=== PATIENT | male | born 1940 | race Caucasian/White ===

== ENCOUNTER → 2017-04-24 | Outpatient (POV) | payer MEDICARE, SELFPAY | PROVIDERS: Family Provider Internal Medicine; PCP Internal Medicine; Visit Provider Otolaryngology | DX: D49.2 Neoplasm of unspecified behavior of bone, soft tissue, and skin (principal); Z01.818 Encounter for other preprocedural examination; Z79.01 Long term (current) use of anticoagulants; Z51.81 Encounter for therapeutic drug level monitoring | CPT/HCPCS: 36415; 80048; 85025; 85610 ==

== ENCOUNTER → 2017-06-11 10:28 | Outpatient (CLI) | payer MEDICARE, SELFPAY ==
[2017-06-11 11:20] LABS: INR 2.87 (0.9-1.1); Prothrombin Time 31.3 seconds (9.4-11.8)
== END ==
PROVIDERS: PCP Internal Medicine; Visit Provider Internal Medicine
DX: Z79.01 Long term (current) use of anticoagulants (principal); I48.0 Paroxysmal atrial fibrillation; Z51.81 Encounter for therapeutic drug level monitoring
CPT/HCPCS: 36415; 85610

== ENCOUNTER → 2017-07-08 12:52 | Outpatient (CLI) | payer MEDICARE, SELFPAY ==
[2017-07-08 14:48] LABS: INR 2.85 (0.9-1.1); Prothrombin Time 31.1 seconds (9.4-11.8)
== END ==
PROVIDERS: PCP Internal Medicine; Visit Provider Internal Medicine
DX: Z79.01 Long term (current) use of anticoagulants (principal); Z51.81 Encounter for therapeutic drug level monitoring; I48.0 Paroxysmal atrial fibrillation
CPT/HCPCS: 36415; 85610

== ENCOUNTER → 2017-08-06 09:19 | Outpatient (CLI) | payer MEDICARE, SELFPAY ==
[2017-08-06 09:48] LABS: INR 3.08 (0.9-1.1); Prothrombin Time 33.7 seconds (9.4-11.8)
== END ==
PROVIDERS: Visit Provider Internal Medicine
DX: Z79.01 Long term (current) use of anticoagulants (principal); Z51.81 Encounter for therapeutic drug level monitoring; I48.0 Paroxysmal atrial fibrillation
CPT/HCPCS: 36415; 85610

== ENCOUNTER → 2017-08-25 10:11 | Outpatient (CLI) | payer MEDICARE, SELFPAY ==
[2017-08-25 10:33] LABS: INR 2.37 (0.9-1.1); Prothrombin Time 25.8 seconds (9.4-11.8)
== END ==
PROVIDERS: Visit Provider Internal Medicine
DX: Z79.01 Long term (current) use of anticoagulants (principal); Z51.81 Encounter for therapeutic drug level monitoring; I48.0 Paroxysmal atrial fibrillation
CPT/HCPCS: 36415; 85610

== ENCOUNTER → 2017-09-25 10:37 | Outpatient (CLI) | payer MEDICARE, SELFPAY ==
[2017-09-25 12:35] LABS: INR 2.09 (0.9-1.1); Prothrombin Time 22.7 seconds (9.4-11.8)
== END ==
PROVIDERS: Visit Provider Internal Medicine
DX: Z79.01 Long term (current) use of anticoagulants (principal); Z51.81 Encounter for therapeutic drug level monitoring; I48.0 Paroxysmal atrial fibrillation
CPT/HCPCS: 36415; 85610

== ENCOUNTER → 2017-10-27 13:13 | Outpatient (CLI) | payer MEDICARE, SELFPAY ==
[2017-10-27 14:07] LABS: Prothrombin Time 25.1 seconds (9.4-11.8)
== END ==
PROVIDERS: Visit Provider Internal Medicine
DX: Z79.01 Long term (current) use of anticoagulants (principal); Z51.81 Encounter for therapeutic drug level monitoring; I48.0 Paroxysmal atrial fibrillation
CPT/HCPCS: 36415; 85610

== ENCOUNTER → 2017-12-01 10:30 | Outpatient (CLI) | payer MEDICARE, SELFPAY ==
[2017-12-01 10:50] LABS: INR 2.82 (0.9-1.1); Prothrombin Time 28.2 seconds (9.4-11.8)
== END ==
PROVIDERS: Visit Provider Internal Medicine
DX: Z79.01 Long term (current) use of anticoagulants (principal); Z51.81 Encounter for therapeutic drug level monitoring; I48.0 Paroxysmal atrial fibrillation
CPT/HCPCS: 36415; 85610

== ENCOUNTER → 2017-12-28 14:35 | Outpatient (CLI) | payer MEDICARE, SELFPAY ==
[2017-12-28 14:52] LABS: Prothrombin Time 21.2 seconds (9.4-11.8)
== END ==
PROVIDERS: Visit Provider Internal Medicine
DX: Z79.01 Long term (current) use of anticoagulants (principal); Z51.81 Encounter for therapeutic drug level monitoring; I48.0 Paroxysmal atrial fibrillation
CPT/HCPCS: 36415; 85610

== ENCOUNTER → 2018-02-09 12:04 | Outpatient (CLI) | payer MEDICARE, SELFPAY ==
[2018-02-09 12:48] LABS: INR 2.05 (0.9-1.1); Prothrombin Time 20.7 seconds (9.4-11.8)
== END ==
PROVIDERS: PCP Internal Medicine; Visit Provider Internal Medicine
DX: Z51.81 Encounter for therapeutic drug level monitoring (principal); Z79.01 Long term (current) use of anticoagulants; I48.0 Paroxysmal atrial fibrillation
CPT/HCPCS: 36415; 85610

== ENCOUNTER → 2018-02-23 13:19 | Outpatient (POV) | payer MEDICARE, SELFPAY | PROVIDERS: Visit Provider Dermatology | DX: Z00.00 Encounter for general adult medical examination without abnormal findings (principal) ==

== ENCOUNTER → 2018-03-09 14:28 | Outpatient (CLI) | payer MEDICARE, SELFPAY ==
[2018-03-09 15:10] LABS: INR 2.19 (0.9-1.1); Prothrombin Time 22.1 seconds (9.4-11.8)
== END ==
PROVIDERS: PCP Internal Medicine; Visit Provider Internal Medicine
DX: Z51.81 Encounter for therapeutic drug level monitoring (principal); Z79.01 Long term (current) use of anticoagulants; I48.0 Paroxysmal atrial fibrillation
CPT/HCPCS: 36415; 85610

== ENCOUNTER → 2018-04-08 11:35 | Outpatient (CLI) | payer MEDICARE, SELFPAY ==
[2018-04-08 12:24] LABS: INR 2.19 (0.9-1.1); Prothrombin Time 22.1 seconds (9.4-11.8)
== END ==
PROVIDERS: Visit Provider Internal Medicine
DX: Z51.81 Encounter for therapeutic drug level monitoring (principal); Z79.01 Long term (current) use of anticoagulants; I48.0 Paroxysmal atrial fibrillation
CPT/HCPCS: 36415; 85610

== ENCOUNTER → 2018-05-04 09:28 | Outpatient (CLI) | payer MEDICARE, SELFPAY ==
[2018-05-04 09:51] LABS: INR 2.75 (0.9-1.1); Prothrombin Time 27.5 seconds (9.4-11.8)
== END ==
PROVIDERS: Visit Provider Internal Medicine
DX: Z51.81 Encounter for therapeutic drug level monitoring (principal); Z79.01 Long term (current) use of anticoagulants; I48.0 Paroxysmal atrial fibrillation
CPT/HCPCS: 36415; 85610

== ENCOUNTER → 2018-06-02 13:46 | Outpatient (CLI) | payer MEDICARE, SELFPAY ==
[2018-06-02 14:35] LABS: INR 2.12 (0.9-1.1); Prothrombin Time 21.4 seconds (9.4-11.8)
== END ==
PROVIDERS: Visit Provider Internal Medicine
DX: Z51.81 Encounter for therapeutic drug level monitoring (principal); Z79.01 Long term (current) use of anticoagulants; I48.0 Paroxysmal atrial fibrillation
CPT/HCPCS: 36415; 85610

== ENCOUNTER → 2018-06-29 14:08 | Outpatient (CLI) | payer MEDICARE, SELFPAY ==
[2018-06-29 14:26] LABS: INR 2.49 (0.9-1.1)
== END ==
PROVIDERS: Visit Provider Internal Medicine
DX: Z51.81 Encounter for therapeutic drug level monitoring (principal); Z79.01 Long term (current) use of anticoagulants; I48.0 Paroxysmal atrial fibrillation
CPT/HCPCS: 36415; 85610

== ENCOUNTER → 2018-08-10 13:13 | Outpatient (CLI) | payer MEDICARE, SELFPAY ==
[2018-08-10 14:10] LABS: INR 2.93 (0.9-1.1); Prothrombin Time 29.3 seconds (9.4-11.8)
== END ==
PROVIDERS: Visit Provider Internal Medicine
DX: Z51.81 Encounter for therapeutic drug level monitoring (principal); Z79.01 Long term (current) use of anticoagulants; I48.0 Paroxysmal atrial fibrillation
CPT/HCPCS: 36415; 85610

== ENCOUNTER → 2018-09-06 10:42 | Outpatient (CLI) | payer MEDICARE, SELFPAY ==
[2018-09-06 11:10] LABS: Prothrombin Time 24.1 seconds (9.4-11.8)
== END ==
PROVIDERS: Visit Provider Internal Medicine
DX: Z51.81 Encounter for therapeutic drug level monitoring (principal); Z79.01 Long term (current) use of anticoagulants; I48.0 Paroxysmal atrial fibrillation
CPT/HCPCS: 36415; 85610

== ENCOUNTER → 2018-10-07 11:55 | Outpatient (CLI) | payer MEDICARE, SELFPAY ==
[2018-10-07 12:55] LABS: INR 2.93 (0.9-1.1)
== END ==
PROVIDERS: Visit Provider Internal Medicine
DX: Z51.81 Encounter for therapeutic drug level monitoring (principal); Z79.01 Long term (current) use of anticoagulants; I48.0 Paroxysmal atrial fibrillation
CPT/HCPCS: 36415; 85610

== ENCOUNTER → 2018-11-04 10:14 | Outpatient (CLI) | payer MEDICARE, SELFPAY ==
[2018-11-04 13:07] LABS: INR 2.76 (0.9-1.1); Prothrombin Time 27.4 seconds (9.4-11.8)
== END ==
PROVIDERS: Visit Provider Internal Medicine
DX: Z51.81 Encounter for therapeutic drug level monitoring (principal); Z79.01 Long term (current) use of anticoagulants; I48.0 Paroxysmal atrial fibrillation
CPT/HCPCS: 36415; 85610

== ENCOUNTER → 2018-11-30 11:10 | Outpatient (CLI) | payer MEDICARE, SELFPAY ==
[2018-11-30 11:31] LABS: INR 2.33 (0.9-1.1); Prothrombin Time 23.3 seconds (9.4-11.8)
== END ==
PROVIDERS: Visit Provider Internal Medicine
DX: Z51.81 Encounter for therapeutic drug level monitoring (principal); Z79.01 Long term (current) use of anticoagulants; I48.0 Paroxysmal atrial fibrillation
CPT/HCPCS: 36415; 85610

== ENCOUNTER → 2018-12-21 14:02 | Outpatient (POV) | payer MEDICARE, SELFPAY | PROVIDERS: Visit Provider Dermatology | DX: Z00.00 Encounter for general adult medical examination without abnormal findings (principal) ==

== ENCOUNTER → 2018-12-30 09:45 | Outpatient (CLI) | payer MEDICARE, SELFPAY ==
[2018-12-30 10:21] LABS: INR 2.74 (0.9-1.1); Prothrombin Time 27.2 seconds (9.4-11.8)
== END ==
PROVIDERS: Visit Provider Internal Medicine
DX: Z79.01 Long term (current) use of anticoagulants (principal)
CPT/HCPCS: 36415; 85610

== ENCOUNTER → 2019-02-02 16:20 | Outpatient (CLI) | payer MEDICARE, SELFPAY ==
[2019-02-02 17:01] LABS: INR 2.98 (0.9-1.1); Prothrombin Time 29.4 seconds (9.4-11.8)
== END ==
PROVIDERS: Visit Provider Internal Medicine
DX: Z51.81 Encounter for therapeutic drug level monitoring (principal); Z79.01 Long term (current) use of anticoagulants; I48.91 Unspecified atrial fibrillation
CPT/HCPCS: 36415; 85610

== ENCOUNTER → 2019-03-02 11:55 | Outpatient (CLI) | payer MEDICARE, SELFPAY ==
[2019-03-02 12:18] LABS: INR 2.22 (0.9-1.1); Prothrombin Time 22.2 seconds (9.4-11.8)
== END ==
PROVIDERS: Visit Provider Internal Medicine
DX: Z51.81 Encounter for therapeutic drug level monitoring (principal); Z79.01 Long term (current) use of anticoagulants; I48.0 Paroxysmal atrial fibrillation
CPT/HCPCS: 36415; 85610

== ENCOUNTER → 2019-03-29 14:14 | Outpatient (CLI) | payer MEDICARE, SELFPAY ==
[2019-03-29 15:05] LABS: INR 3.22 (0.9-1.1); Prothrombin Time 31.7 seconds (9.4-11.8)
== END ==
PROVIDERS: Visit Provider Internal Medicine
DX: Z51.81 Encounter for therapeutic drug level monitoring (principal); Z79.01 Long term (current) use of anticoagulants; I48.0 Paroxysmal atrial fibrillation
CPT/HCPCS: 36415; 85610

== ENCOUNTER → 2019-04-11 13:13 | Outpatient (CLI) | payer MEDICARE, SELFPAY ==
[2019-04-11 13:38] LABS: INR 3.83 (0.9-1.1); Prothrombin Time 37.4 seconds (9.4-11.8)
== END ==
PROVIDERS: Visit Provider Internal Medicine
DX: Z51.81 Encounter for therapeutic drug level monitoring; Z79.01 Long term (current) use of anticoagulants; I48.0 Paroxysmal atrial fibrillation
CPT/HCPCS: 36415; 85610

== ENCOUNTER → 2019-04-27 11:18 | Outpatient (CLI) | payer MEDICARE, SELFPAY ==
[2019-04-27 11:40] LABS: INR 3.13 (0.9-1.1); Prothrombin Time 30.8 seconds (9.4-11.8)
== END ==
PROVIDERS: Visit Provider Internal Medicine
DX: Z51.81 Encounter for therapeutic drug level monitoring (principal); Z79.01 Long term (current) use of anticoagulants; I48.0 Paroxysmal atrial fibrillation
CPT/HCPCS: 36415; 85610

== ENCOUNTER → 2019-05-11 10:25 | Outpatient (CLI) | payer MEDICARE, SELFPAY ==
[2019-05-11 11:27] LABS: INR 2.55 (0.9-1.1); Prothrombin Time 25.4 seconds (9.4-11.8)
== END ==
PROVIDERS: Visit Provider Internal Medicine
DX: Z51.81 Encounter for therapeutic drug level monitoring (principal); Z79.01 Long term (current) use of anticoagulants
CPT/HCPCS: 36415; 85610

== ENCOUNTER → 2019-05-31 11:03 | Outpatient (CLI) | payer MEDICARE, SELFPAY ==
[2019-05-31 11:19] LABS: Basophils % 0.5 % (0.1-2.0); Eosinophils # 0.2 K/mm3 (0.0-0.4); Eosinophils % 3.1 % (0.1-12.0); Hematocrit 40.6 % (42.0-52.0); Hemoglobin 13.4 g/dL (14.1-18.0); INR 3.49 (0.9-1.1); Lymphocytes % 13.7 % (10-50); Mean Corpuscular HGB Conc 33.1 g/dL (31.8-35.4); Mean Corpuscular Hemoglobin 29.2 pg (27.0-31.2); Mean Corpuscular Volume 88.2 fl (80-94); Mean Platelet Volume 6.8 fl (7.4-10.4); Monocytes # 0.6 K/mm3 (0.1-1.0); Monocytes % 7.6 % (1.7-9.3); Neutrophils # 5.5 K/mm3 (1.8-7.8); Neutrophils % 75.1 % (37.0-80.0); Platelet Count 341 K/mm3 (142-424); Prothrombin Time 34.2 seconds (9.4-11.8); Red Cell Distribution Width 13.1 % (11.5-17.5); White Blood Count 7.3 K/mm3 (4.8-10.8)
[2019-05-31 11:51] LABS: Erythrocyte Sedimentation Rate 28 mm/hr (0-20)
[2019-05-31 11:56] LABS: Thyroid Stimulating Hormone 2.49 uIU/ml (0.358-3.740)
[2019-06-01 11:08] LABS: Vitamin B12 208 pg/mL (232-1245)
[2019-06-01 11:09] LABS: Folate 17.9 ng/mL (>3.0)
[2019-06-01 16:10] LABS: Albumin 3.2 g/dL (2.9-4.4); Alpha-1-Globulin 0.4 g/dL (0.0-0.4); Alpha-2-Globulin 1.3 g/dL (0.4-1.0); Gamma Globulin 1.1 g/dL (0.4-1.8); Protein, Total 6.9 g/dL (6.0-8.5)
== END ==
PROVIDERS: Visit Provider Internal Medicine
DX: G62.9 Polyneuropathy, unspecified (principal); I48.91 Unspecified atrial fibrillation
CPT/HCPCS: 82607; 82746; 84155; 84165; 84443; 85025; 85610; 85651

== ENCOUNTER → 2019-06-15 11:32 | Outpatient (CLI) | payer MEDICARE, SELFPAY ==
[2019-06-15 12:11] LABS: INR 2.53 (0.9-1.1); Prothrombin Time 25.2 seconds (9.4-11.8)
== END ==
PROVIDERS: Visit Provider Internal Medicine
DX: Z51.81 Encounter for therapeutic drug level monitoring (principal); Z79.01 Long term (current) use of anticoagulants; I48.0 Paroxysmal atrial fibrillation
CPT/HCPCS: 36415; 85610

== ENCOUNTER → 2019-07-12 09:56 | Outpatient (POV) | payer MEDICARE, SELFPAY | PROVIDERS: PCP Internal Medicine; Visit Provider Dermatology | DX: Z00.00 Encounter for general adult medical examination without abnormal findings (principal) ==

== ENCOUNTER → 2019-07-13 15:36 | Outpatient (CLI) | payer MEDICARE, SELFPAY ==
[2019-07-13 16:32] LABS: INR 2.67 (0.9-1.1); Prothrombin Time 26.5 seconds (9.4-11.8)
== END ==
PROVIDERS: Visit Provider Internal Medicine
DX: Z51.81 Encounter for therapeutic drug level monitoring (principal); Z79.01 Long term (current) use of anticoagulants; I48.0 Paroxysmal atrial fibrillation
CPT/HCPCS: 36415; 85610

== ENCOUNTER → 2019-08-03 11:14 | Outpatient (CLI) | payer MEDICARE, SELFPAY | PROVIDERS: Visit Provider Internal Medicine | DX: Z51.81 Encounter for therapeutic drug level monitoring (principal); Z79.01 Long term (current) use of anticoagulants; I48.0 Paroxysmal atrial fibrillation | CPT/HCPCS: 36415; 85610 ==

== ENCOUNTER → 2019-08-31 07:52 | Outpatient (CLI) | payer MEDICARE, SELFPAY ==
[2019-08-31 08:22] LABS: INR 1.74 (0.9-1.1); Prothrombin Time 17.6 seconds (9.4-11.8)
== END ==
PROVIDERS: Visit Provider Internal Medicine
DX: Z51.81 Encounter for therapeutic drug level monitoring (principal); Z79.01 Long term (current) use of anticoagulants; I48.0 Paroxysmal atrial fibrillation
CPT/HCPCS: 36415; 85610

== ENCOUNTER → 2019-09-14 08:33 | Outpatient (CLI) | payer MEDICARE, SELFPAY ==
[2019-09-14 09:38] LABS: INR 2.01 (0.9-1.1); Prothrombin Time 20.2 seconds (9.4-11.8)
== END ==
PROVIDERS: Visit Provider Internal Medicine
DX: Z51.81 Encounter for therapeutic drug level monitoring (principal); Z79.01 Long term (current) use of anticoagulants; I48.0 Paroxysmal atrial fibrillation
CPT/HCPCS: 36415; 85610

== ENCOUNTER → 2019-10-12 11:55 | Outpatient (CLI) | payer MEDICARE, SELFPAY ==
[2019-10-12 13:06] LABS: INR 2.61 (0.9-1.1); Prothrombin Time 25.9 seconds (9.4-11.8)
== END ==
PROVIDERS: Visit Provider Internal Medicine
DX: Z51.81 Encounter for therapeutic drug level monitoring (principal); Z79.01 Long term (current) use of anticoagulants; I48.0 Paroxysmal atrial fibrillation
CPT/HCPCS: 36415; 85610

== ENCOUNTER → 2019-12-06 09:42 | Outpatient (POV) | payer MEDICARE, SELFPAY | PROVIDERS: PCP Internal Medicine; Visit Provider Dermatology | DX: Z00.00 Encounter for general adult medical examination without abnormal findings (principal) ==

== ENCOUNTER → 2019-12-07 11:52 | Outpatient (CLI) | payer MEDICARE, SELFPAY ==
[2019-12-07 12:44] LABS: Prothrombin Time 26.1 seconds (9.4-11.8)
== END ==
PROVIDERS: Visit Provider Internal Medicine
DX: Z51.81 Encounter for therapeutic drug level monitoring (principal); Z79.01 Long term (current) use of anticoagulants; I48.0 Paroxysmal atrial fibrillation
CPT/HCPCS: 36415; 85610

== ENCOUNTER → 2020-01-04 12:01 | Outpatient (CLI) | payer MEDICARE, SELFPAY ==
[2020-01-04 12:33] LABS: INR 2.61 (0.9-1.1); Prothrombin Time 25.2 seconds (9.4-11.8)
== END ==
PROVIDERS: Visit Provider Internal Medicine
DX: Z51.81 Encounter for therapeutic drug level monitoring (principal); Z79.01 Long term (current) use of anticoagulants; I48.91 Unspecified atrial fibrillation
CPT/HCPCS: 36415; 85610

== ENCOUNTER → 2020-02-29 11:54 | Outpatient (CLI) | payer MEDICARE, SELFPAY ==
[2020-02-29 13:29] LABS: INR 2.78 (0.9-1.1); Prothrombin Time 28.1 seconds (9.4-11.8)
== END ==
PROVIDERS: Visit Provider Internal Medicine
DX: Z51.81 Encounter for therapeutic drug level monitoring (principal); Z79.01 Long term (current) use of anticoagulants; I48.0 Paroxysmal atrial fibrillation
CPT/HCPCS: 36415; 85610

== ENCOUNTER → 2020-03-28 11:24 | Outpatient (CLI) | payer MEDICARE, SELFPAY ==
[2020-03-28 13:13] LABS: INR 2.73 (0.9-1.1); Prothrombin Time 27.7 seconds (9.4-11.8)
== END ==
PROVIDERS: Visit Provider Internal Medicine
DX: Z51.81 Encounter for therapeutic drug level monitoring (principal); Z79.01 Long term (current) use of anticoagulants; I48.0 Paroxysmal atrial fibrillation
CPT/HCPCS: 36415; 85610

== ENCOUNTER → 2020-04-25 12:00 | Outpatient (CLI) | payer MEDICARE, SELFPAY ==
[2020-04-25 14:08] LABS: INR 2.95 (0.9-1.1); Prothrombin Time 29.7 seconds (9.4-11.8)
== END ==
PROVIDERS: Visit Provider Internal Medicine
DX: Z51.81 Encounter for therapeutic drug level monitoring (principal); Z79.01 Long term (current) use of anticoagulants; I48.0 Paroxysmal atrial fibrillation
CPT/HCPCS: 36415; 85610

== ENCOUNTER → 2020-05-23 11:25 | Outpatient (CLI) | payer MEDICARE, SELFPAY ==
[2020-05-23 11:59] LABS: INR 2.68 (0.9-1.1); Prothrombin Time 27.2 seconds (9.4-11.8)
== END ==
PROVIDERS: Visit Provider Internal Medicine
DX: Z51.81 Encounter for therapeutic drug level monitoring (principal); Z79.01 Long term (current) use of anticoagulants; I48.0 Paroxysmal atrial fibrillation
CPT/HCPCS: 36415; 85610

== ENCOUNTER → 2020-06-12 15:11 | Outpatient (POV) | payer MEDICARE, SELFPAY | PROVIDERS: Visit Provider Dermatology | DX: Z00.00 Encounter for general adult medical examination without abnormal findings (principal) ==

== ENCOUNTER → 2020-06-20 12:02 | Outpatient (CLI) | payer MEDICARE, SELFPAY ==
[2020-06-20 13:08] LABS: INR 2.24 (0.9-1.1); Prothrombin Time 23.1 seconds (9.4-11.8)
== END ==
PROVIDERS: Visit Provider Internal Medicine
DX: Z51.81 Encounter for therapeutic drug level monitoring (principal); Z79.01 Long term (current) use of anticoagulants; I48.0 Paroxysmal atrial fibrillation
CPT/HCPCS: 36415; 85610

== ENCOUNTER → 2020-07-18 13:27 | Outpatient (CLI) | payer MEDICARE, SELFPAY ==
[2020-07-18 17:19] LABS: INR 2.76 (0.9-1.1); Prothrombin Time 27.9 seconds (9.4-11.8)
== END ==
PROVIDERS: Visit Provider Internal Medicine
DX: Z51.81 Encounter for therapeutic drug level monitoring (principal); Z79.01 Long term (current) use of anticoagulants; I48.0 Paroxysmal atrial fibrillation
CPT/HCPCS: 36415; 85610

== ENCOUNTER → 2020-08-09 10:19 | Outpatient (POV) | payer MEDICARE, SELFPAY | PROVIDERS: Visit Provider Audiologist | DX: Z00.00 Encounter for general adult medical examination without abnormal findings (principal) ==

== ENCOUNTER → 2020-08-15 11:44 | Outpatient (CLI) | payer MEDICARE, SELFPAY ==
[2020-08-15 13:14] LABS: INR 2.31 (0.9-1.1); Prothrombin Time 25.6 seconds (10.1-12.5)
[2020-08-15 13:53] LABS: Thyroid Stimulating Hormone 1.92 uIU/mL (0.465-4.68)
[2020-08-15 13:57] LABS: Ferritin 141 ng/ml (17.9-464)
[2020-08-15 14:30] LABS: Folate > 20.00 ng/mL; Vitamin B12 > 1000 pg/mL (239-931)
[2020-08-20 15:34] LABS: Albumin 4.1 g/dL (2.9-4.4); Alpha-1-Globulin 0.3 g/dL (0.0-0.4); Alpha-2-Globulin 0.8 g/dL (0.4-1.0); Gamma Globulin 1.2 g/dL (0.4-1.8); Immunoglobulin A, Qn, CHARGE YES; Immunoglobulin A, Qn, Serum 118 mg/dL (61-437); Immunoglobulin G, Qn, CHARGE YES; Immunoglobulin G, Qn, Serum 1199 mg/dL (603-1613); Immunoglobulin M, Qn, CHARGE YES; Immunoglobulin M, Qn, Serum 73 mg/dL (15-143); Protein, Total 7.3 g/dL (6.0-8.5)
== END ==
PROVIDERS: Internal Medicine; Visit Provider Specialist
DX: E83.10 Disorder of iron metabolism, unspecified (principal); R20.0 Anesthesia of skin; R20.8 Other disturbances of skin sensation; R53.83 Other fatigue; R73.9 Hyperglycemia, unspecified; Z86.39 Personal history of other endocrine, nutritional and metabolic disease; E78.5 Hyperlipidemia, unspecified; I48.91 Unspecified atrial fibrillation; I10 Essential (primary) hypertension; Z51.81 Encounter for therapeutic drug level monitoring; Z79.01 Long term (current) use of anticoagulants
CPT/HCPCS: 36415; 82607; 82728; 82746; 82784; 83036; 84155; 84165; 84443; 85610; 86334

== ENCOUNTER → 2020-09-11 12:03 | Outpatient (CLI) | payer MEDICARE, SELFPAY ==
[2020-09-11 13:29] LABS: INR 2.77 (0.9-1.1); Prothrombin Time 30.3 seconds (10.1-12.5)
== END ==
PROVIDERS: Visit Provider Internal Medicine
DX: Z51.81 Encounter for therapeutic drug level monitoring (principal); Z79.01 Long term (current) use of anticoagulants; I48.0 Paroxysmal atrial fibrillation
CPT/HCPCS: 36415; 85610

== ENCOUNTER → 2020-10-10 11:44 | Outpatient (CLI) | payer MEDICARE, SELFPAY ==
[2020-10-10 12:51] LABS: INR 2.46 (0.9-1.1); Prothrombin Time 27.2 seconds (10.1-12.5)
== END ==
PROVIDERS: Visit Provider Internal Medicine
DX: Z51.81 Encounter for therapeutic drug level monitoring (principal); Z79.01 Long term (current) use of anticoagulants; I48.0 Paroxysmal atrial fibrillation
CPT/HCPCS: 36415; 85610

== ENCOUNTER → 2020-11-07 11:47 | Outpatient (CLI) | payer MEDICARE, SELFPAY ==
[2020-11-07 13:36] LABS: Prothrombin Time 26.1 seconds (10.1-12.5)
[2020-11-07 16:18] LABS: INR 2.36 (0.9-1.1)
== END ==
PROVIDERS: Visit Provider Internal Medicine
DX: Z51.81 Encounter for therapeutic drug level monitoring (principal); Z79.01 Long term (current) use of anticoagulants; I48.0 Paroxysmal atrial fibrillation
CPT/HCPCS: 36415; 85610

== ENCOUNTER → 2020-12-04 11:44 | Outpatient (CLI) | payer MEDICARE, SELFPAY ==
[2020-12-04 12:44] LABS: INR 2.26 (0.9-1.1); Prothrombin Time 25.1 seconds (10.1-12.5)
== END ==
PROVIDERS: Visit Provider Internal Medicine
DX: Z51.81 Encounter for therapeutic drug level monitoring (principal); Z79.01 Long term (current) use of anticoagulants; I48.0 Paroxysmal atrial fibrillation
CPT/HCPCS: 36415; 85610

== ENCOUNTER → 2020-12-31 15:03 | Outpatient (CLI) | payer MEDICARE, SELFPAY ==
[2020-12-31 15:44] LABS: Prothrombin Time 31.2 seconds (10.1-12.5)
[2020-12-31 15:55] LABS: INR 2.86 (0.9-1.1)
== END ==
PROVIDERS: Visit Provider Internal Medicine
DX: Z51.81 Encounter for therapeutic drug level monitoring (principal); Z79.01 Long term (current) use of anticoagulants; I48.0 Paroxysmal atrial fibrillation
CPT/HCPCS: 36415; 85610

== ENCOUNTER → 2021-02-27 13:55 | Outpatient (CLI) | payer MEDICARE, SELFPAY ==
[2021-02-27 14:02] LABS: Basophils # 0.1 K/mm3 (0-0.2); Basophils % 0.9 % (0.1-2.0); Eosinophils # 0.1 K/mm3 (0.0-0.4); Eosinophils % 2.7 % (0.1-12.0); Hematocrit 36.4 % (42.0-52.0); Lymphocytes % 20.6 % (10-50); Mean Corpuscular Hemoglobin 30.6 pg (27.0-31.2); Mean Corpuscular Volume 92.7 fl (80-94); Mean Platelet Volume 8.1 fl (7.4-10.4); Monocytes # 0.3 K/mm3 (0.1-1.0); Monocytes % 6.7 % (1.7-9.3); Neutrophils # 3.4 K/mm3 (1.8-7.8); Neutrophils % 69.1 % (37.0-80.0); Platelet Count 278 K/mm3 (142-424); Red Blood Count 3.93 M/mm3 (4.60-6.20); Red Cell Distribution Width 13.9 % (11.5-17.5); White Blood Count 4.9 K/mm3 (4.8-10.8)
== END ==
PROVIDERS: Visit Provider Internal Medicine
DX: D64.9 Anemia, unspecified (principal); I73.9 Peripheral vascular disease, unspecified; E53.8 Deficiency of other specified B group vitamins
CPT/HCPCS: 85025

== ENCOUNTER → 2021-03-06 10:18 | Outpatient (CLI) | payer MEDICARE, SELFPAY ==
[2021-03-06 10:46] LABS: INR 2.69 (0.9-1.1); Prothrombin Time 28.2 seconds (10.1-12.5)
== END ==
PROVIDERS: Visit Provider Internal Medicine
DX: Z51.81 Encounter for therapeutic drug level monitoring (principal); Z79.01 Long term (current) use of anticoagulants; I48.0 Paroxysmal atrial fibrillation
CPT/HCPCS: 36415; 85610

== ENCOUNTER → 2021-04-03 11:39 | Outpatient (CLI) | payer MEDICARE, SELFPAY ==
[2021-04-03 12:54] LABS: INR 2.31 (0.9-1.1); Prothrombin Time 24.5 seconds (10.1-12.5)
== END ==
PROVIDERS: Visit Provider Internal Medicine
DX: Z51.81 Encounter for therapeutic drug level monitoring (principal); Z79.01 Long term (current) use of anticoagulants; I48.0 Paroxysmal atrial fibrillation
CPT/HCPCS: 85610

== ENCOUNTER → 2021-04-08 13:40 | Outpatient (CLI) | payer MEDICARE, SELFPAY | PROVIDERS: PCP Internal Medicine; Visit Provider Internal Medicine Cardiovascular Disease | DX: R00.1 Bradycardia, unspecified; G47.33 Obstructive sleep apnea (adult) (pediatric) | CPT/HCPCS: G0399 ==

== ENCOUNTER → 2021-04-24 11:45 | Outpatient (CLI) | payer MEDICARE, SELFPAY ==
[2021-04-24 12:34] LABS: Basophils % 0.9 % (0.1-2.0); Eosinophils # 0.1 K/mm3 (0.0-0.4); Eosinophils % 2.4 % (0.1-12.0); Hematocrit 37.6 % (42.0-52.0); Hemoglobin 12.7 g/dL (14.1-18.0); Lymphocytes # 1.2 K/mm3 (0.7-4.5); Lymphocytes % 23.8 % (10-50); Mean Corpuscular HGB Conc 33.8 g/dL (31.8-35.4); Mean Corpuscular Hemoglobin 30.5 pg (27.0-31.2); Mean Corpuscular Volume 90.2 fl (80-94); Mean Platelet Volume 7.6 fl (7.4-10.4); Monocytes # 0.4 K/mm3 (0.1-1.0); Monocytes % 7.6 % (1.7-9.3); Neutrophils # 3.3 K/mm3 (1.8-7.8); Neutrophils % 65.4 % (37.0-80.0); Platelet Count 280 K/mm3 (142-424); Red Blood Count 4.16 M/mm3 (4.60-6.20); Red Cell Distribution Width 13.7 % (11.5-17.5)
[2021-04-24 12:52] LABS: INR 2.16 (0.9-1.1); Prothrombin Time 23.1 seconds (10.1-12.5)
== END ==
PROVIDERS: Visit Provider Internal Medicine
DX: Z51.81 Encounter for therapeutic drug level monitoring (principal); Z79.01 Long term (current) use of anticoagulants; I48.91 Unspecified atrial fibrillation; D64.9 Anemia, unspecified
CPT/HCPCS: 36415; 85025; 85610

== ENCOUNTER → 2021-05-21 14:23 | Outpatient (CLI) | payer MEDICARE, SELFPAY ==
[2021-05-21 15:10] LABS: INR 2.72 (0.9-1.1); Prothrombin Time 28.5 seconds (10.1-12.5)
== END ==
PROVIDERS: Visit Provider Internal Medicine
DX: Z51.81 Encounter for therapeutic drug level monitoring (principal); Z79.01 Long term (current) use of anticoagulants; I48.0 Paroxysmal atrial fibrillation
CPT/HCPCS: 36415; 85610

== ENCOUNTER → 2021-06-18 12:14 | Outpatient (CLI) | payer MEDICARE, SELFPAY ==
[2021-06-18 13:01] LABS: INR 2.51 (0.9-1.1); Prothrombin Time 26.5 seconds (10.1-12.5)
== END ==
PROVIDERS: PCP Internal Medicine; Visit Provider Internal Medicine
DX: Z51.81 Encounter for therapeutic drug level monitoring (principal); Z79.01 Long term (current) use of anticoagulants; I48.0 Paroxysmal atrial fibrillation
CPT/HCPCS: 36415; 85610

== ENCOUNTER → 2021-07-17 11:57 | Outpatient (CLI) | payer MEDICARE, SELFPAY ==
[2021-07-17 13:06] LABS: Prothrombin Time 24.4 seconds (10.1-12.5)
== END ==
PROVIDERS: Visit Provider Internal Medicine
DX: Z51.81 Encounter for therapeutic drug level monitoring (principal); Z79.01 Long term (current) use of anticoagulants; I48.0 Paroxysmal atrial fibrillation
CPT/HCPCS: 36415; 85610

== ENCOUNTER → 2021-07-26 13:20 | Outpatient (CLI) | payer MEDICARE, SELFPAY ==
[2021-07-26 15:19] LABS: Eosinophils # 0.1 K/mm3 (0.0-0.4); Eosinophils % 2.7 % (0.1-12.0); Hematocrit 39.6 % (42.0-52.0); Hemoglobin 13.6 g/dL (14.1-18.0); Mean Corpuscular HGB Conc 34.2 g/dL (31.8-35.4); Mean Corpuscular Hemoglobin 31.1 pg (27.0-31.2); Mean Platelet Volume 7.5 fl (7.4-10.4); Monocytes # 0.3 K/mm3 (0.1-1.0); Monocytes % 8.3 % (1.7-9.3); Neutrophils # 2.3 K/mm3 (1.8-7.8); Platelet Count 279 K/mm3 (142-424); Red Blood Count 4.36 M/mm3 (4.60-6.20); Red Cell Distribution Width 13.2 % (11.5-17.5); White Blood Count 3.7 K/mm3 (4.8-10.8)
[2021-07-26 15:31] LABS: Chloride 99 mmol/L (98-107); Potassium 4.3 mmoL/L (3.5-5.1); Sodium 136 mmol/L (136-145)
[2021-07-26 15:33] LABS: Alanine Aminotransferase 18 U/L (12-78); Aspartate Amino Transferase 32 U/L (17-59); Blood Urea Nitrogen 13 mg/dl (9-20); Estimated Glomerular Filt Rate 109 ml/min (>60); GFR (African American) 131 ML/MIN (>60)
[2021-07-26 15:34] LABS: Albumin Level 4.4 g/dl (3.5-5.0); Albumin/Globulin Ratio 1.8 (1.1-1.8); Alkaline Phosphatase 45 U/L (38-126); Anion Gap 12.3 mEq/L (5-15); Bilirubin,Total 0.7 mg/dl (0.2-1.3); Calcium 8.6 mg/dl (8.4-10.2); Carbon Dioxide 29 mmol/L (22.0-30.0); Chol/HDL Ratio 2.7 (1-3.5); Cholesterol 141 mg/dl (140-200); Globulin 2.5 g/dL (1.3-3.2); Glucose 87 mg/dl (74-100); HDL Cholesterol 53 mg/dl (40-60); Total Protein,Serum 6.9 g/dl (6.3-8.2); Triglycerides 80 mg/dl (30-150); VLDL Cholesterol 16 mg/dL (0-40)
[2021-07-26 15:48] LABS: Direct LDL Cholesterol 67.34 mg/dL (100-129)
[2021-07-26 17:04] LABS: Prostate Specific Ag Screen 1.5 ng/ml (0.0-4.0)
== END ==
PROVIDERS: PCP Internal Medicine; Visit Provider Internal Medicine
DX: I10 Essential (primary) hypertension (principal); I73.9 Peripheral vascular disease, unspecified; I48.20 Chronic atrial fibrillation, unspecified; E53.8 Deficiency of other specified B group vitamins; N40.1 Benign prostatic hyperplasia with lower urinary tract symptoms; Z12.5 Encounter for screening for malignant neoplasm of prostate
CPT/HCPCS: 80053; 80061; 85025; G0103

== ENCOUNTER → 2021-08-14 15:36 | Outpatient (CLI) | payer MEDICARE, SELFPAY ==
[2021-08-14 16:20] LABS: INR 2.76 (0.9-1.1); Prothrombin Time 28.9 seconds (10.1-12.5)
== END ==
PROVIDERS: PCP Internal Medicine; Visit Provider Internal Medicine
DX: Z51.81 Encounter for therapeutic drug level monitoring (principal); Z79.01 Long term (current) use of anticoagulants; I48.0 Paroxysmal atrial fibrillation
CPT/HCPCS: 36415; 85610

== ENCOUNTER → 2021-09-06 11:10 | Outpatient (CLI) | payer MEDICARE, SELFPAY ==
--- NOTE | 2021-09-06 11:43 | XR_ITS ---
FINAL REPORT TECHNIQUE: Chest PA & Lateral CLINICAL HISTORY: FEVER INTERMITTENT COMPARISON: 10/09/2016 FINDINGS: 2 views of the chest were performed. The heart size is normal. The mediastinum is within normal limits. There is no acute cardiopulmonary process. There are no pleural effusions. There is no pneumothorax. The bony thorax appears intact. IMPRESSION: No acute cardiopulmonary process. Reviewed, Interpreted and Dictated by David Moody MD Transcribed by Garry Zarate Authenticated by David Moody MD on 09/06/2021 01:02:40 PM [facility]
[2021-09-06 11:56] LABS: Basophils # 0.1 K/mm3 (0-0.2); Basophils % 2.1 % (0.1-2.0); Eosinophils % 0.8 % (0.1-12.0); Hematocrit 39.2 % (42.0-52.0); Hemoglobin 12.9 g/dL (14.1-18.0); Lymphocytes # 0.7 K/mm3 (0.7-4.5); Lymphocytes % 20.6 % (10-50); Mean Corpuscular Hemoglobin 30.6 pg (27.0-31.2); Mean Corpuscular Volume 92.9 fl (80-94); Mean Platelet Volume 7.9 fl (7.4-10.4); Monocytes # 0.3 K/mm3 (0.1-1.0); Monocytes % 9.3 % (1.7-9.3); Neutrophils # 2.3 K/mm3 (1.8-7.8); Neutrophils % 67.2 % (37.0-80.0); Platelet Count 163 K/mm3 (142-424); Red Blood Count 4.22 M/mm3 (4.60-6.20); Red Cell Distribution Width 13.7 % (11.5-17.5); White Blood Count 3.4 K/mm3 (4.8-10.8)
[2021-09-06 12:45] LABS: Erythrocyte Sedimentation Rate 28 mm/hr (0-20)
== END ==
PROVIDERS: PCP Internal Medicine; Visit Provider Internal Medicine
DX: R50.9 Fever, unspecified (principal); J31.0 Chronic rhinitis; Z87.438 Personal history of other diseases of male genital organs
CPT/HCPCS: 36415; 71046; 85025; 85651; 87040

== ENCOUNTER → 2021-09-18 12:08 | Outpatient (CLI) | payer MEDICARE, SELFPAY ==
[2021-09-18 12:42] LABS: INR 1.12 (0.9-1.1); Prothrombin Time 12.6 seconds (10.1-12.5)
== END ==
PROVIDERS: PCP Internal Medicine; Visit Provider Internal Medicine
DX: Z51.81 Encounter for therapeutic drug level monitoring (principal); Z79.01 Long term (current) use of anticoagulants; I48.0 Paroxysmal atrial fibrillation
CPT/HCPCS: 36415; 85610

== ENCOUNTER → 2021-09-24 13:55 | Outpatient (CLI) | payer MEDICARE, SELFPAY ==
[2021-09-24 15:07] LABS: INR 1.43 (0.9-1.1); Prothrombin Time 15.7 seconds (10.1-12.5)
== END ==
PROVIDERS: Visit Provider Internal Medicine
DX: Z51.81 Encounter for therapeutic drug level monitoring (principal); Z79.01 Long term (current) use of anticoagulants; I48.0 Paroxysmal atrial fibrillation
CPT/HCPCS: 36415; 85610

== ENCOUNTER → 2021-10-01 15:00 | Outpatient (CLI) | payer MEDICARE, SELFPAY ==
[2021-10-01 15:36] LABS: INR 2.43 (0.9-1.1); Prothrombin Time 25.7 seconds (10.1-12.5)
== END ==
PROVIDERS: Visit Provider Internal Medicine
DX: Z51.81 Encounter for therapeutic drug level monitoring (principal); Z79.01 Long term (current) use of anticoagulants; I48.0 Paroxysmal atrial fibrillation
CPT/HCPCS: 36415; 85610

== ENCOUNTER → 2021-10-15 13:55 | Outpatient (CLI) | payer MEDICARE, SELFPAY ==
[2021-10-15 15:16] LABS: INR 3.33 (0.9-1.1); Prothrombin Time 34.4 seconds (10.1-12.5)
== END ==
PROVIDERS: Urology; Visit Provider Internal Medicine
DX: R97.20 Elevated prostate specific antigen [PSA] (principal); Z51.81 Encounter for therapeutic drug level monitoring; Z79.01 Long term (current) use of anticoagulants; I48.0 Paroxysmal atrial fibrillation
CPT/HCPCS: 36415; 84153; 85610

== ENCOUNTER → 2021-10-28 11:29 | Outpatient (CLI) | payer MEDICARE, SELFPAY ==
[2021-10-28 12:56] LABS: INR 2.27 (0.9-1.1); Prothrombin Time 24.1 seconds (10.1-12.5)
== END ==
PROVIDERS: PCP Internal Medicine; Visit Provider Internal Medicine
DX: Z51.81 Encounter for therapeutic drug level monitoring (principal); Z79.01 Long term (current) use of anticoagulants; I48.0 Paroxysmal atrial fibrillation
CPT/HCPCS: 36415; 85610

== ENCOUNTER → 2021-11-11 10:29 | Outpatient (CLI) | payer MEDICARE, SELFPAY ==
[2021-11-11 12:20] LABS: INR 1.77 (0.9-1.1); Prothrombin Time 19.2 seconds (10.1-12.5)
== END ==
PROVIDERS: PCP Internal Medicine; Visit Provider Internal Medicine
DX: Z51.81 Encounter for therapeutic drug level monitoring (principal); Z79.01 Long term (current) use of anticoagulants; I48.0 Paroxysmal atrial fibrillation
CPT/HCPCS: 36415; 85610

== ENCOUNTER 2021-11-24 21:27 | Emergency (ER) | payer MEDICARE, SELFPAY ==
[2021-11-24 21:23] VITALS: BP 166/85; PULSE 89; RESP 18; TEMP 37.4; O2SAT 96; BMI 25.1
--- NOTE | 2021-11-24 21:24 | ECG_ITS ---
APPROVED REPORT Exam: Resting ECG HR:87 bpm ECG Measurements Heart Rate 87 AXES QRSd 106 QRS -15 QT 365 T 50 QTc 409 Conclusion ATRIAL FIBRILLATION MINIMAL ST DEPRESSION [0.025+ mV ST DEPRESSION] ABNORMAL RHYTHM ECG UNCONFIRMED REPORT Electronically signed by : Elvis Small MD 11/25/2021 21:28:23
--- NOTE | 2021-11-24 21:40 | CT_ITS ---
PROCEDURE INFORMATION: Exam: CT Head Without Contrast Exam date and time: 11/24/2021 9:52 PM Age: 81 years old Clinical indication: Dizziness and other: Off balance; Additional info: Loss of balance dizzy TECHNIQUE: Imaging protocol: Computed tomography of the head without contrast. Radiation optimization: All CT scans at this facility use at least one of these dose optimization techniques: automated exposure control; mA and/or kV adjustment per patient size (includes targeted exams where dose is matched to clinical indication); or iterative reconstruction. COMPARISON: No relevant prior studies available. FINDINGS: Brain: There is mild enlargement of ventricular system and cortical sulci without evidence of mass effect or midline shift. Patchy areas of hypodensity without mass-effect are noted in the periventricular white matter compatible with chronic microvascular ischemic disease. The wang/white matter interfaces are preserved. There are no extra-axial fluid collections.The basal cisterns are patent. Cerebral ventricles: No hydrocephalus. Paranasal sinuses: Well aerated. No fluid levels. Mastoid air cells: Visualized mastoid air cells are well aerated. Bones/joints: Unremarkable. No acute fracture. Soft tissues: Unremarkable. IMPRESSION: 1. No evidence of intracranial hemorrhage, mass effect, midline shift or hydrocephalus. 2. Involutional changes. 3. Findings compatible with chronic microvascular ischemic disease.
[2021-11-24 21:42] LABS: Influenza A, PCR Not Detected (NotDetected); Influenza B, PCR Not Detected (NotDetected)
[2021-11-24 21:47] LABS: Basophils # 0.1 K/mm3 (0-0.2); Basophils % 1.8 % (0.1-2.0); Eosinophils % 0.6 % (0.1-12.0); Hematocrit 36.6 % (42.0-52.0); Hemoglobin 11.6 g/dL (14.1-18.0); Lymphocytes # 0.5 K/mm3 (0.7-4.5); Lymphocytes % 9.4 % (10-50); Mean Corpuscular HGB Conc 31.8 g/dL (31.8-35.4); Mean Corpuscular Hemoglobin 29.2 pg (27.0-31.2); Mean Corpuscular Volume 91.6 fl (80-94); Mean Platelet Volume 8.1 fl (7.4-10.4); Monocytes # 0.5 K/mm3 (0.1-1.0); Monocytes % 8.4 % (1.7-9.3); Neutrophils # 4.6 K/mm3 (1.8-7.8); Neutrophils % 79.9 % (37.0-80.0); Platelet Count 188 K/mm3 (142-424); Red Blood Count 3.99 M/mm3 (4.60-6.20); Red Cell Distribution Width 13.6 % (11.5-17.5); White Blood Count 5.7 K/mm3 (4.8-10.8)
--- NOTE | 2021-11-24 21:49 | PC.NURSE ---
Pt gone to RAD
--- NOTE | 2021-11-24 21:52 | PC.NURSE ---
Gave pt an update over the phone
[2021-11-24 21:53] LABS: Alanine Aminotransferase 24 U/L (12-78); Albumin Level 4.1 g/dl (3.5-5.0); Albumin/Globulin Ratio 1.4 (1.1-1.8); Alkaline Phosphatase 59 U/L (38-126); Anion Gap 12.8 mEq/L (5-15); Aspartate Amino Transferase 36 U/L (17-59); Bilirubin,Total 0.2 mg/dl (0.2-1.3); Blood Urea Nitrogen 14 mg/dl (9-20); Calcium 8.3 mg/dl (8.4-10.2); Carbon Dioxide 25 mmol/L (22.0-30.0); Chloride 92 mmol/L (98-107); Creatinine Clearance Estimated 67 mL/min (50-200); Estimated Glomerular Filt Rate 129 ml/min (>60); GFR (African American) 156 ML/MIN (>60); Globulin 2.9 g/dL (1.3-3.2); Glucose 117 mg/dl (74-100); Potassium 3.8 mmoL/L (3.5-5.1); Sodium 126 mmol/L (136-145)
--- NOTE | 2021-11-24 21:55 | PC.NURSE ---
PT REFUSES BILAT KNEE XRAYS.
[2021-11-24 21:58] LABS: C-Reactive Protein 34.5 mg/L (0-4)
[2021-11-24 21:58] LABS: Microscopic, Urine URINE MICROSCOPIC (MICROSCOPIC)
--- NOTE | 2021-11-24 21:59 | PC.NURSE ---
Pt back from RAD
[2021-11-24 22:00] LABS: Appearance,Urine CLEAR (Clear); Bilirubin,Urine Negative (Negative); Blood, Urine TRACE-I (Negative); Color,Urine YELLOW (Yellow); Glucose,Urine (UA) Negative (Negative); Ketones,Urine Negative (Negative); Leukocyte Esterase,Urine Negative (Negative); Nitrate,Urine Negative (Negative); Protein,Urine 2+ (Negative); Urobilinogen,Urine 0.2 EU/dl (0.2)
[2021-11-24 22:06] LABS: INR 1.99 (0.9-1.1); Prothrombin Time 21.4 seconds (10.1-12.5)
[2021-11-24 22:11] LABS: Bacteria,Urine Trace /lpf; RBC,Urine Occasional #/hpf (0-3); Squamous Epithelial Cell,Urine Occasional #/hpf (0-5)
[2021-11-24 22:12] LABS: Procalcitonin 0.055 ng/mL (0.0-2.0)
[2021-11-24 22:15] LABS: Coronavirus 19, PCR Detected (NotDetected)
[2021-11-24 22:15] LABS: Erythrocyte Sedimentation Rate 44 mm/hr (0-20)
--- NOTE | 2021-11-24 22:17 | HMH.EDWEAK ---
ED Disposition Clinical Impression: COVID-19 A-fib Qualifiers: Atrial fibrillation type: unspecified chronic Qualified Code(s): I48.20 - Chronic atrial fibrillation, unspecified Disposition: Home, Self-Care Condition on Discharge: Good Instructions: DI for COVID-19 (Suspected or Confirmed ) Additional Instructions: use meds and see pcp for follow up Referrals: Juan Francisco Varner MD [Primary Care Provider] - - Critical Care Critical Care Time: No Attestation: On 11/24/21, the high probability of a clinically significant, sudden or life threatening deterioration of the following system(s) required my full and direct attention, intervention and personal management. The time I documented below is in addition to time spent performing reported procedures but includes the following listed in this critical care notation. Medical Decision Making - Medical Records Medical records reviewed: Yes: I reviewed the patient's medical records. - Prakash Inquiry Pt receiving controlled substance: No Vital Signs: 11/24/21 21:23 Temperature 99.3 F Temperature Source Oral Pulse Rate [Left Radial] 89 Respiratory Rate 18 Blood Pressure [Right Arm] 166/85 H Blood Pressure Mean [Right Arm] 112 Blood Pressure Source [Right Arm] Automatic Cuff Blood Pressure Position [Right Arm] Sitting 02 Sat by Pulse Oximetry 96 Oxygen Delivery Method Room Air - Lab Data Lab results reviewed: Yes: I reviewed the patient's lab results. Lab Results 11/24/21 21:26: SARS-CoV-2 (PCR) Detected A, Influenza A Untype (PCR) Not detected, Influenza Type B (PCR) Not detected 11/24/21 21:30: WBC 5.7, RBC 3.99 L, Hgb 11.6 L, Hct 36.6 L, MCV 91.6, MCH 29.2, MCHC 31.8, RDW 13.6, Plt Count 188, MPV 8.1, Neut % (Auto) 79.9, Lymph % (Auto) 9.4 L, [place] % (Auto) 8.4, Eos % (Auto) 0.6, Baso % (Auto) 1.8, Neut # (Auto) 4.6, Lymph # (Auto) 0.5 L, [place] # (Auto) 0.5, Eos # (Auto) 0.0, Baso # (Auto) 0.1, ESR 44 H 11/24/21 21:30: Sodium 126 L, Potassium 3.8, Chloride 92 L, Carbon Dioxide 25, Anion Gap 12.8, BUN 14, Creatinine 0.60 L, Estimated Creat Clear 67, Estimated GFR 129, Est GFR ( Amer) 156, Glucose 117 H, Calcium 8.3 L, Total Bilirubin 0.2, AST 36, ALT 24, Alkaline Phosphatase 59, C-Reactive Protein 34.5 H, Total Protein 7.0, Albumin 4.1, Globulin 2.9, Albumin/Globulin Ratio 1.4, Procalcitonin 0.055 11/24/21 21:30: Lactate 1.0 11/24/21 21:30: PT 21.4 H, INR 1.99 H 11/24/21 21:55: Urine Color Yellow, Urine Appearance Clear, Urine pH 6.0, Ur Specific [place] 1.020, Urine Protein 2+, Urine Glucose (UA) Negative, Urine Ketones Negative, Urine Blood Trace-i, Urine Nitrate Negative, Urine Bilirubin Negative, Urine Urobilinogen 0.2, Ur Leukocyte Esterase Negative, Urine RBC Occasional, Urine WBC None, Ur Squamous Epith Cells Occasional, Urine Bacteria Trace Result diagrams: 11/24/21 21:30 11/24/21 21:30 Orders (Tests/Meds): ED MEDICATIONS Generic Name Dose Route Start Last Admin Trade Name Freq PRN Reason Stop Dose Admin Sodium Chloride 1,000 mls @ 999 mls/hr 11/24/21 21:45 11/24/21 21:51 Sod Chlor 0.9% 1000ml Bag IV 11/24/21 22:45 999 mls/hr .Q1H1M ZIA Administration ORDERS Category Date Time Status XR knee LT 3V Stat Exams 11/24/21 21:41 Ordered XR knee RT 3V Stat Exams 11/24/21 21:41 Ordered Blood Culture Stat Micro 11/24/21 21:30 Received - CT Data CT Scan: Head Time Received: 22:[address] Reviewed: Yes: I have viewed the radiologist's interpretation Preliminary Findings: Normal/NAD - ECG Data Tracing #1 Arrhythmias present: afib Ischemic changes: non-specific ST-T wave changes Medical Decision Narrative: has covid-19 and has stable exam and labs Weakness HPI - General Chief complaint: Weakness Stated complaint: Dizziness Time Seen by Provider: 11/24/21 21:50 Mode of Arrival: EMS Source of Information: Patient, EMS, Medical Record Limitations: No Limitations Description of Symptoms (Recalled from ER Triag
--- NOTE | 2021-11-24 22:42 | PC.NURSE ---
Pt able to ambulate safely
[2021-11-24 23:08] VITALS: BP 133/71; PULSE 81; RESP 16; TEMP 36.7; O2SAT 96
== END 2021-11-24 23:11 | disposition home or self-care (01) ==
PROVIDERS: Emergency Provider Emergency Medicine; PCP Internal Medicine
DX: U07.1 COVID-19 (principal); I48.20 Chronic atrial fibrillation, unspecified; R53.1 Weakness; R50.9 Fever, unspecified; Z79.01 Long term (current) use of anticoagulants; Z79.899 Other long term (current) drug therapy; E78.5 Hyperlipidemia, unspecified; I10 Essential (primary) hypertension; M19.90 Unspecified osteoarthritis, unspecified site
CPT/HCPCS: 70450; 80053; 81001; 83605; 84145; 85025; 85610; 85651; 86140; 87040; 93005; 96365; 99284; C9803; U0003; U0005

== ENCOUNTER → 2021-11-29 13:17 | Outpatient (CLI) | payer MEDICARE, SELFPAY ==
[2021-11-29 14:09] LABS: INR 3.57 (0.9-1.1); Prothrombin Time 36.7 seconds (10.1-12.5)
== END ==
PROVIDERS: PCP Internal Medicine; Visit Provider Internal Medicine
DX: Z51.81 Encounter for therapeutic drug level monitoring (principal); Z79.01 Long term (current) use of anticoagulants; I48.91 Unspecified atrial fibrillation
CPT/HCPCS: 85610

== ENCOUNTER → 2021-12-13 10:12 | Outpatient (CLI) | payer MEDICARE, SELFPAY ==
[2021-12-13 12:40] LABS: INR 3.47 (0.9-1.1); Prothrombin Time 35.8 seconds (10.1-12.5)
== END ==
PROVIDERS: PCP Internal Medicine; Visit Provider Internal Medicine
DX: Z51.81 Encounter for therapeutic drug level monitoring (principal); Z79.01 Long term (current) use of anticoagulants; I48.0 Paroxysmal atrial fibrillation
CPT/HCPCS: 36415; 85610

== ENCOUNTER → 2021-12-27 11:10 | Outpatient (CLI) | payer MEDICARE, SELFPAY ==
[2021-12-27 11:58] LABS: INR 2.41 (0.9-1.1); Prothrombin Time 25.5 seconds (10.1-12.5)
== END ==
PROVIDERS: PCP Internal Medicine; Visit Provider Internal Medicine
DX: Z51.81 Encounter for therapeutic drug level monitoring (principal); Z79.01 Long term (current) use of anticoagulants; I48.0 Paroxysmal atrial fibrillation
CPT/HCPCS: 36415; 85610

== ENCOUNTER → 2022-01-24 11:30 | Outpatient (CLI) | payer MEDICARE, SELFPAY ==
[2022-01-24 14:07] LABS: INR 1.24 (0.9-1.1); Prothrombin Time 13.2 seconds (10.1-12.5)
== END ==
PROVIDERS: PCP Internal Medicine; Visit Provider Internal Medicine
DX: Z51.81 Encounter for therapeutic drug level monitoring (principal); Z79.01 Long term (current) use of anticoagulants; I48.0 Paroxysmal atrial fibrillation
CPT/HCPCS: 36415; 85610

== ENCOUNTER → 2022-01-28 09:44 | Outpatient (POV) | payer MEDICARE, SELFPAY | PROVIDERS: Visit Provider Dermatology | DX: Z00.00 Encounter for general adult medical examination without abnormal findings (principal) ==

== ENCOUNTER → 2022-01-31 09:28 | Outpatient (CLI) | payer MEDICARE, SELFPAY ==
[2022-01-31 16:19] LABS: Basophils % 0.6 % (0.1-2.0); Eosinophils # 0.2 K/mm3 (0.0-0.4); Eosinophils % 4.4 % (0.1-12.0); Hematocrit 38.8 % (42.0-52.0); Lymphocytes # 0.9 K/mm3 (0.7-4.5); Lymphocytes % 19.8 % (10-50); Mean Corpuscular HGB Conc 30.9 g/dL (31.8-35.4); Mean Corpuscular Hemoglobin 29.1 pg (27.0-31.2); Mean Corpuscular Volume 94.1 fl (80-94); Mean Platelet Volume 7.7 fl (7.4-10.4); Monocytes # 0.4 K/mm3 (0.1-1.0); Neutrophils # 3.1 K/mm3 (1.8-7.8); Neutrophils % 67.1 % (37.0-80.0); Platelet Count 289 K/mm3 (142-424); Red Blood Count 4.12 M/mm3 (4.60-6.20); Red Cell Distribution Width 13.9 % (11.5-17.5); White Blood Count 4.7 K/mm3 (4.8-10.8)
[2022-01-31 17:14] LABS: Alanine Aminotransferase 19 U/L (12-78); Albumin Level 4.1 g/dl (3.5-5.0); Albumin/Globulin Ratio 1.5 (1.1-1.8); Alkaline Phosphatase 69 U/L (38-126); Anion Gap 11.2 mEq/L (5-15); Aspartate Amino Transferase 29 U/L (17-59); Bilirubin,Total 0.3 mg/dl (0.2-1.3); Blood Urea Nitrogen 13 mg/dl (9-20); Calcium 8.8 mg/dl (8.4-10.2); Carbon Dioxide 29 mmol/L (22.0-30.0); Chloride 103 mmol/L (98-107); Chol/HDL Ratio 2.7 (1-3.5); Cholesterol 142 mg/dl (140-200); Estimated Glomerular Filt Rate 108 ml/min (>60); GFR (African American) 131 ML/MIN (>60); Globulin 2.8 g/dL (1.3-3.2); Glucose 89 mg/dl (74-100); HDL Cholesterol 53 mg/dl (40-60); Potassium 4.2 mmoL/L (3.5-5.1); Sodium 139 mmol/L (136-145); Total Protein,Serum 6.9 g/dl (6.3-8.2); Triglycerides 77 mg/dl (30-150); VLDL Cholesterol 15 mg/dL (0-40)
[2022-01-31 17:25] LABS: Direct LDL Cholesterol 63.16 mg/dL (100-129)
== END ==
PROVIDERS: PCP Internal Medicine; Visit Provider Internal Medicine
DX: I10 Essential (primary) hypertension (principal); E53.8 Deficiency of other specified B group vitamins; E78.5 Hyperlipidemia, unspecified; I73.9 Peripheral vascular disease, unspecified
CPT/HCPCS: 80053; 80061; 85025

== ENCOUNTER → 2022-02-06 14:06 | Outpatient (CLI) | payer MEDICARE, SELFPAY ==
[2022-02-06 15:19] LABS: INR 1.62 (0.9-1.1)
== END ==
PROVIDERS: PCP Internal Medicine; Visit Provider Internal Medicine
DX: Z51.81 Encounter for therapeutic drug level monitoring (principal); Z79.01 Long term (current) use of anticoagulants; I48.0 Paroxysmal atrial fibrillation
CPT/HCPCS: 36415; 85610

== ENCOUNTER → 2022-02-11 14:45 | Outpatient (POV) | payer MEDICARE, SELFPAY | PROVIDERS: Visit Provider Dermatology | DX: Z00.00 Encounter for general adult medical examination without abnormal findings (principal) ==

== ENCOUNTER → 2022-02-20 11:30 | Outpatient (CLI) | payer MEDICARE, SELFPAY ==
[2022-02-20 12:14] LABS: INR 2.15 (0.9-1.1); Prothrombin Time 22.2 seconds (10.1-12.5)
== END ==
PROVIDERS: PCP Internal Medicine; Visit Provider Internal Medicine
DX: I48.0 Paroxysmal atrial fibrillation (principal)
CPT/HCPCS: 36415; 85610

== ENCOUNTER 2022-02-20 19:51 | Emergency (ER) | payer MEDICARE, SELFPAY ==
--- NOTE | 2022-02-20 19:57 | ECG_ITS ---
APPROVED REPORT Exam: Resting ECG HR:107 bpm ECG Measurements Heart Rate 107 AXES QRSd 100 QRS -1 QT 332 T 48 QTc 395 Conclusion ATRIAL FIBRILLATION WITH RAPID VENTRICULAR RESPONSE MODERATE ST DEPRESSION [0.05+ mV ST DEPRESSION] ABNORMAL ECG UNCONFIRMED REPORT Electronically signed by : Elvis Small MD 02/21/2022 13:50:47
[2022-02-20 20:01] VITALS: BP 162/100; PULSE 105; RESP 19; TEMP 36.9; O2SAT 96; BMI 24.4
--- NOTE | 2022-02-20 20:21 | XR_ITS ---
PROCEDURE INFORMATION: Exam: XR Chest Exam date and time: 02/20/2022 8:23 PM Age: 81 years old Clinical indication: Other: HTN; Additional info: High BP TECHNIQUE: Imaging protocol: Radiologic exam of the chest. Views: 2 views. COMPARISON: CR XR CHEST 2V 09/06/2021 11:47 AM FINDINGS: Lungs: Normal. Pleural spaces: Unremarkable. No pleural effusion. No pneumothorax. Heart/Mediastinum: Normal. Bones/joints: No acute abnormality. IMPRESSION: No acute findings.
--- NOTE | 2022-02-20 20:44 | PC.NURSE ---
spoke with flavia who stated they were starting labs now.
--- NOTE | 2022-02-20 20:45 | HMH.EDWEAK ---
Discharge Plan Disposition Patient Disposition: Home, Self-Care Chief Complaint: Weakness Prescriptions Prescriptions: No Action lisinopril 40 mg tablet 40 mg PO QDAY finasteride 5 mg tablet 5 mg PO QDAY simvastatin 20 mg tablet 20 mg PO QAM hydrochlorothiazide 12.5 mg capsule 12.5 mg PO QDAY amlodipine 5 mg tablet 5 mg PO QDAY loratadine 10 mg capsule 10 mg PO QDAY carvedilol 6.25 mg tablet 6.25 mg PO BID tamsulosin 0.4 mg capsule,extended release 24hr 0.4 mg PO QDAY Maximum D3 325 mcg (13,000 unit) capsule 325 mcg PO WEEKLY fluticasone propionate 50 mcg/actuation spray,suspension 1 spray INTRANASAL BID Rx Instructions: DIRECTED. cyanocobalamin (vitamin B-12) 1,000 mcg/mL solution 1,000 mcg IM QMONTH warfarin 2.5 MG tablet 2.5 mg PO DIRECTED meclizine 25 MG tablet,chewable 1 tab PO BID PRN (Reason: Dizziness) Referrals Follow up/Referrals: Juan Francisco Varner MD [Primary Care Provider] - See instructions Clinical Impressions Clinical Impression: Hypertension, Afib Instructions Patient Instructions: Essential Hypertension Discharge ED Provider: Chuy Ortiz HPI General Chief complaint: Weakness Stated complaint: HIGH BP Time Seen by Provider: 02/20/22 20:45 Mode of Arrival: Ambulatory Source of Information: Patient and Medical Record Limitations: No Limitations Description of Symptoms (Recalled from ER Triage Doc. by RN): 81 yo male presents with cc high blood pressure . states he noticed that he felt bad and that feet feel heavy early this date. Checked his bp and it was elevated at home despite taking his home medications. PMH includes afib, HTN,hyperlipidemia. PSH: cholecystecomy,hernia repair. Denies any previous cardiac events/surgeries beyond afib. Takes daily anticoagulants and has been having issues with regulating his serum levels since he had covid dx several months ago. Denies CP/nausea/vomiting/dyspnea. Reports burping a couple of times . History of Present Illness HPI Narrative: not feeling well and has hx of a fib and had elevated bp at home - has been compliant with meds Complaint: generalized weakness Onset (ago): day(s) Location: generalized Migration: none Severity: moderate Associated symptoms: denies other symptoms Related Data Home Medications Medication Instructions Recorded Confirmed amlodipine 5 mg tablet 5 mg PO QDAY HTN 06/01/17 11/24/21 carvedilol 6.25 mg tablet 6.25 mg PO BID HTN 06/01/17 11/24/21 finasteride 5 mg tablet 5 mg PO QDAY PROSTATE 06/01/17 11/24/21 hydrochlorothiazide 12.5 mg capsule 12.5 mg PO QDAY Fluid 06/01/17 11/24/21 lisinopril 40 mg tablet 40 mg PO QDAY HTN 06/01/17 11/24/21 loratadine 10 mg capsule 10 mg PO QDAY ALLERGIES 06/01/17 11/24/21 simvastatin 20 mg tablet 20 mg PO QAM Cholesterol 06/01/17 11/24/21 tamsulosin 0.4 mg capsule 0.4 mg PO QDAY PROSTATE 06/01/17 11/24/21 fluticasone propionate 50 1 spray INTRANASAL BID Blood 11/21/19 11/24/21 mcg/actuation nasal thinner spray,suspension cyanocobalamin (vitamin B-12) 1,000 mcg IM QMONTH AFIB 08/13/20 11/24/21 1,000 mcg/mL injection solution cholecalciferol (vitamin D3) 325 325 mcg PO WEEKLY Blood thinner 09/27/20 11/24/21 mcg (13,000 unit) capsule (Maximum D3) meclizine 25 mg chewable tablet 1 tab PO BID PRN Dizziness 11/24/21 11/24/21 warfarin 2.5 mg tablet 2.5 mg PO DIRECTED AFIB 11/24/21 11/24/21 Allergies Allergy/AdvReac Type Severity Reaction Status Date / Time No Known Allergies Allergy Verified 10/07/21 14:13 [facility] Medical History (Updated 02/20/22 @ 21:56 by Chuy Ortiz MD) Atrial fibrillation Hyperlipidemia Hypertension Surgical History (Updated 02/20/22 @ 20:09 by Cheryl Frederick RN) History of cholecystectomy Social History (Updated 02/20/22 @ 20:11 by Cheryl Frederick, TYLER) Smoking Status: Never smoker alcohol intake
[2022-02-20 20:55] LABS: INR 2.23 (0.9-1.1)
[2022-02-20 20:58] LABS: Anion Gap 15.1 mEq/L (5-15); Basophils # 0.1 K/mm3 (0-0.2); Basophils % 0.6 % (0.1-2.0); Blood Urea Nitrogen 20 mg/dl (9-20); Calcium 9.1 mg/dl (8.4-10.2); Carbon Dioxide 31 mmol/L (22.0-30.0); Chloride 96 mmol/L (98-107); Creatinine Clearance Estimated 65 mL/min (50-200); Eosinophils # 0.2 K/mm3 (0.0-0.4); Eosinophils % 2.3 % (0.1-12.0); Estimated Glomerular Filt Rate 93 ml/min (>60); GFR (African American) 112 ML/MIN (>60); Glucose 128 mg/dl (74-100); Hematocrit 39.6 % (42.0-52.0); Lymphocytes # 1.3 K/mm3 (0.7-4.5); Lymphocytes % 15.3 % (10-50); Mean Corpuscular HGB Conc 32.9 g/dL (31.8-35.4); Mean Corpuscular Hemoglobin 30.3 pg (27.0-31.2); Mean Corpuscular Volume 92.2 fl (80-94); Mean Platelet Volume 7.4 fl (7.4-10.4); Monocytes # 0.4 K/mm3 (0.1-1.0); Monocytes % 4.8 % (1.7-9.3); Neutrophils # 6.7 K/mm3 (1.8-7.8); Neutrophils % 76.8 % (37.0-80.0); Platelet Count 291 K/mm3 (142-424); Potassium 4.1 mmoL/L (3.5-5.1); Red Cell Distribution Width 14.2 % (11.5-17.5); Sodium 138 mmol/L (136-145); White Blood Count 8.7 K/mm3 (4.8-10.8)
[2022-02-20 21:08] LABS: NT Pro Brain Natriuretic Pep. 1110 pg/mL (0-450)
[2022-02-20 21:18] LABS: Troponin I < 0.01 ng/ml (0.00-0.034)
[2022-02-20 21:23] LABS: Microscopic, Urine URINE MICROSCOPIC (MICROSCOPIC)
[2022-02-20 21:24] LABS: Appearance,Urine CLEAR (Clear); Bilirubin,Urine Negative (Negative); Blood, Urine Negative (Negative); Color,Urine YELLOW (Yellow); Glucose,Urine (UA) Negative (Negative); Ketones,Urine Negative (Negative); Leukocyte Esterase,Urine Negative (Negative); Nitrate,Urine Negative (Negative); Protein,Urine 2+ (Negative); Specific Gravity, Urine >= 1.030 (1.005-1.030); Urobilinogen,Urine 0.2 EU/dl (0.2)
[2022-02-20 21:42] LABS: Bacteria,Urine Trace /lpf; WBC,Urine Occasional #/hpf (0-3)
[2022-02-20 21:43] LABS: Hyaline Casts,Urine Occasional #/lpf (0)
[2022-02-20 22:35] VITALS: BP 156/93; PULSE 79; RESP 15; TEMP 36.6; O2SAT 98
[2022-02-20 22:38] VITALS: BP 155/96; PULSE 78; RESP 16; TEMP 36.6; O2SAT 98
== END 2022-02-20 22:41 | disposition home or self-care (01) ==
PROVIDERS: Emergency Provider Emergency Medicine; PCP Internal Medicine
DX: I10 Essential (primary) hypertension (principal); I48.91 Unspecified atrial fibrillation; Z90.49 Acquired absence of other specified parts of digestive tract; Z86.16 Personal history of COVID-19; Z79.01 Long term (current) use of anticoagulants; E78.5 Hyperlipidemia, unspecified
CPT/HCPCS: 36415; 71046; 80048; 81001; 83880; 84484; 85025; 85610; 93005; 99283

== ENCOUNTER → 2022-03-20 12:53 | Outpatient (CLI) | payer MEDICARE, SELFPAY ==
[2022-03-20 13:32] LABS: INR 2.33 (0.9-1.1)
== END ==
PROVIDERS: PCP Internal Medicine; Visit Provider Internal Medicine
DX: Z51.81 Encounter for therapeutic drug level monitoring (principal); Z79.01 Long term (current) use of anticoagulants; I48.0 Paroxysmal atrial fibrillation
CPT/HCPCS: 36415; 85610

== ENCOUNTER → 2022-04-15 12:01 | Outpatient (CLI) | payer MEDICARE, SELFPAY ==
[2022-04-15 13:40] LABS: INR 2.35 (0.9-1.1); Prothrombin Time 24.2 seconds (10.1-12.5)
== END ==
PROVIDERS: PCP Internal Medicine; Visit Provider Internal Medicine
DX: R79.1 Abnormal coagulation profile (principal)
CPT/HCPCS: 85610

== ENCOUNTER → 2022-05-13 11:19 | Outpatient (CLI) | payer MEDICARE, SELFPAY ==
[2022-05-13 12:11] LABS: INR 2.69 (0.9-1.1); Prothrombin Time 27.5 seconds (10.1-12.5)
== END ==
PROVIDERS: PCP Internal Medicine; Visit Provider Internal Medicine
DX: Z51.81 Encounter for therapeutic drug level monitoring (principal); Z79.01 Long term (current) use of anticoagulants; I48.91 Unspecified atrial fibrillation
CPT/HCPCS: 36415; 85610

== ENCOUNTER → 2022-06-02 11:31 | Outpatient (CLI) | payer MEDICARE, SELFPAY ==
[2022-06-02 13:37] LABS: INR 2.06 (0.9-1.1); Prothrombin Time 21.4 seconds (10.1-12.5)
== END ==
PROVIDERS: PCP Internal Medicine; Visit Provider Internal Medicine
DX: Z51.81 Encounter for therapeutic drug level monitoring (principal); Z79.01 Long term (current) use of anticoagulants; I48.91 Unspecified atrial fibrillation
CPT/HCPCS: 36415; 85610

== ENCOUNTER → 2022-06-30 11:43 | Outpatient (CLI) | payer MEDICARE, SELFPAY ==
[2022-06-30 12:12] LABS: Prothrombin Time 21.7 seconds (10.1-12.5)
== END ==
PROVIDERS: PCP Internal Medicine; Visit Provider Internal Medicine
DX: Z51.81 Encounter for therapeutic drug level monitoring (principal); Z79.01 Long term (current) use of anticoagulants; I48.91 Unspecified atrial fibrillation
CPT/HCPCS: 36415; 85610

== ENCOUNTER → 2022-07-28 11:51 | Outpatient (CLI) | payer MEDICARE, SELFPAY ==
[2022-07-28 13:14] LABS: INR 1.69 (0.9-1.1); Prothrombin Time 17.7 seconds (10.1-12.5)
== END ==
PROVIDERS: PCP Internal Medicine; Visit Provider Internal Medicine
DX: Z51.81 Encounter for therapeutic drug level monitoring (principal); Z79.01 Long term (current) use of anticoagulants; I48.91 Unspecified atrial fibrillation
CPT/HCPCS: 36415; 85610

== ENCOUNTER → 2022-08-04 10:07 | Outpatient (CLI) | payer MEDICARE, SELFPAY ==
--- NOTE | 2022-08-04 10:22 | XR_ITS ---
FINAL REPORT CLINICAL HISTORY: RT HIP PAIN FINDINGS: RIGHT HIP 2 views were obtained. There is no acute fracture or dislocation. For there are mild degenerative changes. Mild vascular calcifications are noted. There is no soft tissue abnormality. IMPRESSION: Degenerative change with no acute bony abnormality. Reviewed, Interpreted and Dictated by David Walton III, MD Transcribed by Lauren Araya Authenticated and [facility]
[2022-08-04 16:46] LABS: Alanine Aminotransferase 15 U/L (12-78); Albumin Level 4.2 g/dl (3.5-5.0); Albumin/Globulin Ratio 1.7 (1.1-1.8); Alkaline Phosphatase 60 U/L (38-126); Anion Gap 11.1 mEq/L (5-15); Aspartate Amino Transferase 23 U/L (17-59); Blood Urea Nitrogen 13 mg/dl (9-20); Calcium 8.7 mg/dl (8.4-10.2); Carbon Dioxide 32 mmol/L (22.0-30.0); Chloride 96 mmol/L (98-107); Chol/HDL Ratio 2.3 (1-3.5); Cholesterol 125 mg/dl (140-200); Estimated Glomerular Filt Rate 93 ml/min (>60); GFR (African American) 112 ML/MIN (>60); Globulin 2.5 g/dL (1.3-3.2); Glucose 91 mg/dl (74-100); HDL Cholesterol 55 mg/dl (40-60); Potassium 4.1 mmoL/L (3.5-5.1); Sodium 135 mmol/L (136-145); Total Protein,Serum 6.7 g/dl (6.3-8.2); Triglycerides 58 mg/dl (30-150); VLDL Cholesterol 12 mg/dL (0-40)
[2022-08-04 16:57] LABS: Direct LDL Cholesterol 57.55 mg/dL (100-129)
== END ==
PROVIDERS: PCP Internal Medicine; Visit Provider Internal Medicine
DX: M25.551 Pain in right hip (principal); I10 Essential (primary) hypertension; E78.5 Hyperlipidemia, unspecified; I73.9 Peripheral vascular disease, unspecified; G60.9 Hereditary and idiopathic neuropathy, unspecified; N40.1 Benign prostatic hyperplasia with lower urinary tract symptoms; Z12.5 Encounter for screening for malignant neoplasm of prostate
CPT/HCPCS: 73502; 80053; 80061; G0103

== ENCOUNTER → 2022-08-11 11:19 | Outpatient (CLI) | payer MEDICARE, SELFPAY ==
[2022-08-11 12:04] LABS: INR 2.64 (0.9-1.1)
== END ==
PROVIDERS: PCP Internal Medicine; Visit Provider Internal Medicine
DX: Z51.81 Encounter for therapeutic drug level monitoring (principal); Z79.01 Long term (current) use of anticoagulants; I48.91 Unspecified atrial fibrillation
CPT/HCPCS: 36415; 85610

== ENCOUNTER 2022-08-13 10:53 | Emergency (ER) | payer MEDICARE, SELFPAY ==
[2022-08-13 10:53] VITALS: BP 139/85; PULSE 82; RESP 17; TEMP 36.7; O2SAT 98; BMI 24.4
[2022-08-13 11:00] VITALS: BP 148/87; PULSE 73; RESP 20; O2SAT 97
--- NOTE | 2022-08-13 11:01 | PC.NURSE ---
DR ROMERO AT BEDSIDE
[2022-08-13 11:29] LABS: Basophils % 0.5 % (0.1-2.0); Eosinophils # 0.1 K/mm3 (0.0-0.4); Eosinophils % 1.2 % (0.1-12.0); Hemoglobin 11.3 g/dL (14.1-18.0); Lymphocytes % 13.6 % (10-50); Mean Corpuscular HGB Conc 33.2 g/dL (31.8-35.4); Mean Corpuscular Hemoglobin 30.1 pg (27.0-31.2); Mean Corpuscular Volume 90.7 fl (80-94); Monocytes # 0.5 K/mm3 (0.1-1.0); Monocytes % 6.3 % (1.7-9.3); Neutrophils # 5.9 K/mm3 (1.8-7.8); Neutrophils % 78.3 % (37.0-80.0); Platelet Count 365 K/mm3 (142-424); Red Blood Count 3.75 M/mm3 (4.60-6.20); Red Cell Distribution Width 13.3 % (11.5-17.5); White Blood Count 7.5 K/mm3 (4.8-10.8)
[2022-08-13 11:30] VITALS: BP 132/113; PULSE 67; O2SAT 97
[2022-08-13 11:32] LABS: Chloride 98 mmol/L (98-107); Potassium 3.7 mmoL/L (3.5-5.1); Sodium 135 mmol/L (136-145)
--- NOTE | 2022-08-13 11:34 | HMH.EDGENADL ---
Discharge Plan Disposition Patient Disposition: Home, Self-Care Chief Complaint: Epistaxis Prescriptions Prescriptions: No Action lisinopril 40 mg tablet 40 mg PO QDAY finasteride 5 mg tablet 5 mg PO QDAY simvastatin 20 mg tablet 20 mg PO QAM hydrochlorothiazide 12.5 mg capsule 12.5 mg PO QDAY amlodipine 5 mg tablet 5 mg PO QDAY loratadine 10 mg capsule 10 mg PO QDAY carvedilol 6.25 mg tablet 6.25 mg PO BID tamsulosin 0.4 mg capsule,extended release 24hr 0.4 mg PO QDAY Maximum D3 325 mcg (13,000 unit) capsule 325 mcg PO WEEKLY fluticasone propionate 50 mcg/actuation spray,suspension 1 spray INTRANASAL BID Rx Instructions: DIRECTED. cyanocobalamin (vitamin B-12) 1,000 mcg/mL solution 1,000 mcg IM QMONTH warfarin 2.5 MG tablet 2.5 mg PO DIRECTED meclizine 25 MG tablet,chewable 1 tab PO BID PRN (Reason: Dizziness) Referrals Follow up/Referrals: Juan Francisco Varner MD [Primary Care Provider] - See instructions Clinical Impressions Clinical Impression: Epistaxis Instructions Patient Instructions: DI for Nosebleed Discharge ED Provider: Jakob Romero General Adult HPI General Chief complaint: Epistaxis Stated complaint: nose bleed Time Seen by Provider: 08/13/22 10:55 Mode of Arrival: Ambulatory Limitations: No Limitations Description of Symptoms (Recalled from ER Triage Doc. by RN): PT REPORTS NOSE BLEED THAT STARTED LAST WEEK, WOKE UP THIS AM ABOUT 0200, WORSE IN RIGHT NARE. PT ON COUMADIN, PT/INR CHECKED ON THURSDAY History of Present Illness HPI narrative: 81-year-old male with history of A-fib on Coumadin hypertension presents with nosebleed. He says that it started at 2:30 AM this morning it resolved and they were about to leave the house around 10:30 AM and it began again. It has resolved again. He did not have significant bleeding bleeding is from the right side of his nares. No dizziness chest pain or headaches vomiting. His INR has been normal per report Related Data Home Medications Medication Instructions Recorded Confirmed amlodipine 5 mg tablet 5 mg PO QDAY HTN 06/01/17 11/24/21 carvedilol 6.25 mg tablet 6.25 mg PO BID HTN 06/01/17 11/24/21 finasteride 5 mg tablet 5 mg PO QDAY PROSTATE 06/01/17 11/24/21 hydrochlorothiazide 12.5 mg capsule 12.5 mg PO QDAY Fluid 06/01/17 11/24/21 lisinopril 40 mg tablet 40 mg PO QDAY HTN 06/01/17 11/24/21 loratadine 10 mg capsule 10 mg PO QDAY ALLERGIES 06/01/17 11/24/21 simvastatin 20 mg tablet 20 mg PO QAM Cholesterol 06/01/17 11/24/21 tamsulosin 0.4 mg capsule 0.4 mg PO QDAY PROSTATE 06/01/17 11/24/21 fluticasone propionate 50 1 spray INTRANASAL BID Blood 11/21/19 11/24/21 mcg/actuation nasal thinner spray,suspension cyanocobalamin (vitamin B-12) 1,000 mcg IM QMONTH AFIB 08/13/20 11/24/21 1,000 mcg/mL injection solution cholecalciferol (vitamin D3) 325 325 mcg PO WEEKLY Blood thinner 09/27/20 11/24/21 mcg (13,000 unit) capsule (Maximum D3) meclizine 25 mg chewable tablet 1 tab PO BID PRN Dizziness 11/24/21 11/24/21 warfarin 2.5 mg tablet 2.5 mg PO DIRECTED AFIB 11/24/21 11/24/21 Allergies Allergy/AdvReac Type Severity Reaction Status Date / Time No Known Allergies Allergy Verified 10/07/21 14:13 [facility] Disclaimer: The information contained in this section may have been updated after the patient was seen, as this information can be updated by other users. Medical History (Updated 08/13/22 @ 12:26 by Jakob Romero MD) Atrial fibrillation Hyperlipidemia Hypertension Surgical History History of cholecystectomy Family History (Updated 08/13/22 @ 11:35 by Amanda Valera RN) Other No significant family history Social History (Updated 08/13/22 @ 11:35 by Amanda Valera RN) Smoking Status: Never smoker alcohol intake: never substance use type: denies use c
[2022-08-13 11:35] LABS: Alanine Aminotransferase 18 U/L (12-78); Albumin/Globulin Ratio 1.3 (1.1-1.8); Alkaline Phosphatase 57 U/L (38-126); Anion Gap 6.7 mEq/L (5-15); Aspartate Amino Transferase 24 U/L (17-59); Bilirubin,Total 0.4 mg/dl (0.2-1.3); Blood Urea Nitrogen 12 mg/dl (9-20); Calcium 8.4 mg/dl (8.4-10.2); Carbon Dioxide 34 mmol/L (22.0-30.0); Creatinine Clearance Estimated 65 mL/min (50-200); Estimated Glomerular Filt Rate 93 ml/min (>60); GFR (African American) 112 ML/MIN (>60); Globulin 3.2 g/dL (1.3-3.2); Glucose 116 mg/dl (74-100); Total Protein,Serum 7.2 g/dl (6.3-8.2)
--- NOTE | 2022-08-13 11:40 | PC.NURSE ---
ROUNDED ON PT AT THIS TIME. DENIES NEEDS. AT BEDSIDE
[2022-08-13 11:45] VITALS: BP 135/81; PULSE 65; O2SAT 96
[2022-08-13 12:00] VITALS: BP 135/81; PULSE 65; RESP 18; O2SAT 96
[2022-08-13 12:07] LABS: INR 3.53 (0.9-1.1); Prothrombin Time 35.5 seconds (10.1-12.5)
--- NOTE | 2022-08-13 12:17 | PC.NURSE ---
DR ROMERO AT BEDSIDE
--- NOTE | 2022-08-13 12:27 | PC.NURSE ---
placed call to ENT they will see pt today
[2022-08-13 12:30] VITALS: BP 135/81; PULSE 61; RESP 17; TEMP 36.6; O2SAT 96
== END 2022-08-13 12:33 | disposition home or self-care (01) ==
PROVIDERS: Emergency Provider Emergency Medicine; PCP Internal Medicine
DX: R04.0 Epistaxis (principal); Z86.79 Personal history of other diseases of the circulatory system
CPT/HCPCS: 80053; 85025; 85610; 99284

== ENCOUNTER → 2022-08-22 10:29 | Outpatient (CLI) | payer MEDICARE, SELFPAY ==
[2022-08-15 10:35] LABS: INR 2.96 (0.9-1.1); Prothrombin Time 30.1 seconds (10.1-12.5)
[2022-08-22 11:31] LABS: INR 1.43 (0.9-1.1); Prothrombin Time 15.1 seconds (10.1-12.5)
== END ==
PROVIDERS: PCP Internal Medicine; Visit Provider Student in an Organized Health Care Education/Training Program
DX: I48.20 Chronic atrial fibrillation, unspecified (principal); Z51.81 Encounter for therapeutic drug level monitoring; Z79.01 Long term (current) use of anticoagulants
CPT/HCPCS: 36415; 85610

== ENCOUNTER → 2022-09-05 11:01 | Outpatient (CLI) | payer MEDICARE, SELFPAY ==
[2022-09-05 11:53] LABS: INR 2.46 (0.9-1.1); Prothrombin Time 25.2 seconds (10.1-12.5)
== END ==
PROVIDERS: PCP Internal Medicine; Visit Provider Internal Medicine
DX: Z51.81 Encounter for therapeutic drug level monitoring (principal); Z79.01 Long term (current) use of anticoagulants; I48.91 Unspecified atrial fibrillation
CPT/HCPCS: 36415; 85610

== ENCOUNTER → 2022-10-02 10:36 | Outpatient (CLI) | payer MEDICARE, SELFPAY ==
[2022-10-02 11:50] LABS: INR 3.66 (0.9-1.1); Prothrombin Time 36.7 seconds (10.1-12.5)
== END ==
PROVIDERS: PCP Internal Medicine; Visit Provider Internal Medicine
DX: Z51.81 Encounter for therapeutic drug level monitoring (principal); Z79.01 Long term (current) use of anticoagulants; I48.91 Unspecified atrial fibrillation
CPT/HCPCS: 36415; 85610

== ENCOUNTER → 2022-10-14 15:12 | Outpatient (POV) | payer MEDICARE, SELFPAY | PROVIDERS: Visit Provider Dermatology | DX: Z00.00 Encounter for general adult medical examination without abnormal findings (principal) ==

== ENCOUNTER → 2022-10-17 12:13 | Outpatient (CLI) | payer MEDICARE, SELFPAY ==
[2022-10-17 13:20] LABS: INR 2.21 (0.9-1.1); Prothrombin Time 22.8 seconds (10.1-12.5)
== END ==
PROVIDERS: PCP Internal Medicine; Visit Provider Internal Medicine
DX: Z51.81 Encounter for therapeutic drug level monitoring (principal); Z79.01 Long term (current) use of anticoagulants; I48.91 Unspecified atrial fibrillation
CPT/HCPCS: 36415; 85610

== ENCOUNTER → 2022-11-14 10:50 | Outpatient (CLI) | payer MEDICARE, SELFPAY ==
[2022-11-14 11:55] LABS: INR 2.25 (0.9-1.1); Prothrombin Time 23.2 seconds (10.1-12.5)
== END ==
PROVIDERS: PCP Internal Medicine; Visit Provider Internal Medicine
DX: Z51.81 Encounter for therapeutic drug level monitoring (principal); Z79.01 Long term (current) use of anticoagulants; I48.91 Unspecified atrial fibrillation
CPT/HCPCS: 36415; 85610

== ENCOUNTER → 2022-11-18 13:26 | Outpatient (POV) | payer MEDICARE, SELFPAY | PROVIDERS: Visit Provider Dermatology | DX: Z00.00 Encounter for general adult medical examination without abnormal findings (principal) ==

== ENCOUNTER → 2022-12-12 14:14 | Outpatient (CLI) | payer MEDICARE, SELFPAY ==
[2022-12-12 14:42] LABS: INR 2.01 (0.9-1.1); Prothrombin Time 20.9 seconds (10.1-12.5)
== END ==
PROVIDERS: PCP Internal Medicine; Visit Provider Internal Medicine
DX: I48.91 Unspecified atrial fibrillation (principal); Z51.81 Encounter for therapeutic drug level monitoring; Z79.01 Long term (current) use of anticoagulants
CPT/HCPCS: 36415; 85610

== ENCOUNTER → 2023-01-06 19:07 | Outpatient (CLI) | payer MEDICARE, SELFPAY ==
[2023-01-06 19:28] LABS: Basophils % 0.4 % (0.1-2.0); Eosinophils # 0.1 K/mm3 (0.0-0.4); Eosinophils % 2.3 % (0.1-12.0); Hematocrit 37.6 % (42.0-52.0); Hemoglobin 11.9 g/dL (14.1-18.0); Lymphocytes % 17.8 % (10-50); Mean Corpuscular HGB Conc 31.7 g/dL (31.8-35.4); Mean Corpuscular Hemoglobin 28.7 pg (27.0-31.2); Mean Corpuscular Volume 90.5 fl (80-94); Mean Platelet Volume 7.7 fl (7.4-10.4); Monocytes # 0.4 K/mm3 (0.1-1.0); Monocytes % 7.3 % (1.7-9.3); Neutrophils # 3.9 K/mm3 (1.8-7.8); Neutrophils % 72.2 % (37.0-80.0); Platelet Count 272 K/mm3 (142-424); Red Blood Count 4.16 M/mm3 (4.60-6.20); Red Cell Distribution Width 13.8 % (11.5-17.5); White Blood Count 5.4 K/mm3 (4.8-10.8)
[2023-01-06 21:03] LABS: Alanine Aminotransferase 18 U/L (12-78); Albumin Level 4.4 g/dl (3.5-5.0); Albumin/Globulin Ratio 1.6 (1.1-1.8); Alkaline Phosphatase 44 U/L (38-126); Anion Gap 12.8 mEq/L (5-15); Aspartate Amino Transferase 25 U/L (17-59); Bilirubin,Total 0.4 mg/dl (0.2-1.3); Blood Urea Nitrogen 16 mg/dl (9-20); Calcium 9.1 mg/dl (8.4-10.2); Carbon Dioxide 30 mmol/L (22.0-30.0); Chloride 96 mmol/L (98-107); Chol/HDL Ratio 2.4 (1-3.5); Cholesterol 127 mg/dl (140-200); Estimated Glomerular Filt Rate 93 ml/min (>60); GFR (African American) 112 ML/MIN (>60); Globulin 2.8 g/dL (1.3-3.2); Glucose 90 mg/dl (74-100); HDL Cholesterol 53 mg/dl (40-60); Potassium 4.8 mmoL/L (3.5-5.1); Sodium 134 mmol/L (136-145); Total Protein,Serum 7.2 g/dl (6.3-8.2); Triglycerides 78 mg/dl (30-150); VLDL Cholesterol 16 mg/dL (0-40)
[2023-01-06 21:14] LABS: Direct LDL Cholesterol 54.33 mg/dL (100-129)
[2023-01-07 13:39] LABS: Iron 83 ug/dL (49-181)
[2023-01-07 13:49] LABS: Total Iron Binding Capacity 330 ug/dL (261-462)
[2023-01-08 18:19] LABS: Albumin 3.9 g/dL (2.9-4.4); Alpha-1-Globulin 0.3 g/dL (0.0-0.4); Alpha-2-Globulin 0.8 g/dL (0.4-1.0); Gamma Globulin 1.1 g/dL (0.4-1.8)
== END ==
PROVIDERS: PCP Internal Medicine; Visit Provider Internal Medicine
DX: I10 Essential (primary) hypertension (principal); D64.9 Anemia, unspecified; E78.5 Hyperlipidemia, unspecified; G60.9 Hereditary and idiopathic neuropathy, unspecified; I73.9 Peripheral vascular disease, unspecified; E53.8 Deficiency of other specified B group vitamins; M15.0 Primary generalized (osteo)arthritis; I48.91 Unspecified atrial fibrillation; N40.1 Benign prostatic hyperplasia with lower urinary tract symptoms
CPT/HCPCS: 80053; 80061; 83540; 83550; 84155; 84165; 85025

== ENCOUNTER → 2023-01-09 10:29 | Outpatient (CLI) | payer MEDICARE, SELFPAY ==
[2023-01-09 11:08] LABS: INR 2.09 (0.9-1.1); Prothrombin Time 21.5 seconds (10.1-12.5)
== END ==
PROVIDERS: PCP Internal Medicine; Visit Provider Internal Medicine
DX: I48.91 Unspecified atrial fibrillation (principal); Z51.81 Encounter for therapeutic drug level monitoring; Z79.01 Long term (current) use of anticoagulants
CPT/HCPCS: 36415; 85610

== ENCOUNTER → 2023-02-06 10:57 | Outpatient (CLI) | payer MEDICARE, SELFPAY ==
[2023-02-06 11:33] LABS: INR 3.23 (0.9-1.1); Prothrombin Time 32.3 seconds (10.1-12.5)
== END ==
PROVIDERS: PCP Internal Medicine; Visit Provider Internal Medicine
DX: I48.91 Unspecified atrial fibrillation (principal); Z51.81 Encounter for therapeutic drug level monitoring; Z79.01 Long term (current) use of anticoagulants
CPT/HCPCS: 36415; 85610

== ENCOUNTER → 2023-02-18 13:55 | Outpatient (CLI) | payer MEDICARE, SELFPAY ==
[2023-02-18 14:35] LABS: INR 1.92 (0.9-1.1); Prothrombin Time 19.9 seconds (10.1-12.5)
== END ==
PROVIDERS: PCP Internal Medicine; Visit Provider Internal Medicine
DX: Z79.01 Long term (current) use of anticoagulants (principal); Z51.81 Encounter for therapeutic drug level monitoring; I48.91 Unspecified atrial fibrillation
CPT/HCPCS: 36415; 85610

== ENCOUNTER → 2023-03-16 10:48 | Outpatient (CLI) | payer MEDICARE, SELFPAY ==
[2023-03-16 11:27] LABS: INR 2.27 (0.9-1.1); Prothrombin Time 23.2 seconds (10.1-12.5)
== END ==
PROVIDERS: PCP Internal Medicine; Visit Provider Internal Medicine
DX: Z79.01 Long term (current) use of anticoagulants (principal); Z51.81 Encounter for therapeutic drug level monitoring; I48.91 Unspecified atrial fibrillation
CPT/HCPCS: 36415; 85610

== ENCOUNTER 2023-06-30 10:33 | Emergency (ER) | payer MEDICARE, SELFPAY ==
[2023-06-30 10:35] VITALS: BP 142/67; PULSE 72; RESP 18; TEMP 37.3; O2SAT 97; BMI 24.3
--- NOTE | 2023-06-30 10:46 | ED_ITS ---
Discharge Plan Disposition Patient Disposition: Home, Self-Care Prescriptions Prescriptions: New Paxlovid 300 mg (150 mg x 2)-100 mg tablets,dose pack See Rx Instructions PO .COMPLEX Qty: 30 0RF Rx Instructions: take TWO 150 mg tablets of nirmatrelvir with ONE 100 mg tablet of ritonavir twice daily for 5 days No Action lisinopril 40 mg tablet 40 mg PO QDAY finasteride 5 mg tablet 5 mg PO QDAY simvastatin 20 mg tablet 20 mg PO QAM hydrochlorothiazide 12.5 mg capsule 12.5 mg PO QDAY amlodipine 5 mg tablet 5 mg PO QDAY loratadine 10 mg capsule 10 mg PO QDAY carvedilol 6.25 mg tablet 6.25 mg PO BID tamsulosin 0.4 mg capsule,extended release 24hr 0.4 mg PO QDAY Maximum D3 325 mcg (13,000 unit) capsule 325 mcg PO WEEKLY fluticasone propionate 50 mcg/actuation spray,suspension 1 spray intranasal BID Rx Instructions: DIRECTED. cyanocobalamin (vitamin B-12) 1,000 mcg/mL solution 1,000 mcg IM QMONTH amoxicillin-pot clavulanate 875-125 mg tablet 1 tab PO BID 10 Days Qty: 20 0RF meclizine 25 MG tablet,chewable 1 tab PO BID PRN (Reason: Dizziness) warfarin 2.5 mg tablet 5 mg PO DAILY Referrals Follow up/Referrals: Juan Francisco Varner MD [Primary Care Provider] - See instructions Activity Restrictions/Add. Instructions Additional Instructions/Restrictions: Call your family doctor to establish care for this visit to the emergency department and schedule follow-up within 48 hours to ensure improvement. If you have any worsening of your condition or any other concerning signs or symptoms, return to the emergency department or your primary care doctor for further evaluation. Take Tylenol 1000 mg every 6 hours (4 times daily) and ibuprofen 400 mg every 6 hours (4 times daily) as needed with food and water to prevent GI upset and kidney damage. Daily Zyrtec or Claritin will help with symptoms as well. Clinical Impressions Clinical Impression: COVID-19 Discharge ED Provider: Olayinka Trevino General Adult HPI General Chief complaint: Weakness Stated complaint: home covid test +, weakness Time Seen by Provider: 06/30/23 10:35 Mode of Arrival: Ambulatory Source of Information: Patient Limitations: No Limitations Description of Symptoms (Recalled from ER Triage Doc. by RN): Patient states he took a home COVID test and it was positive. Complaint of weakness since [address] History of Present Illness HPI narrative: 82-year-old male history of A-fib on more current, hypertension, hyper lipidemia, CAD presenting with COVID. Patient states he started having symptoms 5 days prior to this visit. Tested positive for COVID yesterday. States he has been having cough productive of greenish sputum, fevers, body aches. Has been taking Tylenol and Motrin with mild relief. No chest pain, shortness of breath, nausea vomiting or diarrhea, or any other concerns. Related Data Home Medications Medication Instructions Recorded Confirmed amlodipine 5 mg tablet 5 mg PO QDAY HTN 06/01/17 08/15/22 carvedilol 6.25 mg tablet 6.25 mg PO BID HTN 06/01/17 08/15/22 finasteride 5 mg tablet 5 mg PO QDAY PROSTATE 06/01/17 08/15/22 hydrochlorothiazide 12.5 mg capsule 12.5 mg PO QDAY Fluid 06/01/17 08/15/22 lisinopril 40 mg tablet 40 mg PO QDAY HTN 06/01/17 08/15/22 loratadine 10 mg capsule 10 mg PO QDAY ALLERGIES 06/01/17 08/15/22 simvastatin 20 mg tablet 20 mg PO QAM Cholesterol 06/01/17 08/15/22 tamsulosin 0.4 mg capsule 0.4 mg PO QDAY PROSTATE 06/01/17 08/15/22 fluticasone propionate 50 1 spray intranasal BID Blood 11/21/19 08/15/22 mcg/actuation nasal thinner spray,suspension cyanocobalamin (vitamin B-12) 1,000 mcg IM QMONTH AFIB 08/13/20 08/15/22 1,000 mcg/mL injection solution cholecalciferol (vitamin D3) 325 325 mcg PO WEEKLY Blood thinner 09/27/20 08/15/22 mcg (13,000 unit) capsule (Maximum D3) meclizine 25 mg chewable tablet 1 tab PO BID PRN Dizziness 11/24/21 08/15/22 warfarin 2.5 mg tablet 5 mg PO DAILY AFIB 08/15/22 08/15/22 Previous Rx's Medication Instructions Recorded amoxicillin 875 mg-potassium 1 tab PO BID 10 days #20 tabs 08/13/22 clavulanate 125 mg tablet nirmatrelvir 300 mg (150 mg See Rx Instructions PO .COMPLEX 06/30/23 x2)-ritonavir 100 mg tablet,dose #30 tabs pack (Paxlovid) Allergies Allergy/AdvReac Type Severity Reaction Status Date / Time No Known Allergies Allergy Verified 08/15/22 10:14 [facility] Disclaimer: The information contained in this section may have been updated after the patient was seen, as this information can be updated by other users. Medical History Atrial fibrillation Hyperlipidemia Hypertension Surgical History History of cholecystectomy Family History Other No significant family history Social History Smoking Status: Never smoker alcohol intake: never substance use type: denies use current occupational status: retired Travel in the last 8 weeks: None adopted: No caregiver/support person: No foster care: No household members: spouse housing: house lives independently: Yes marital status: education level: high school service: Yes status: retired [employer]: No current occupational exposures/hazards: No pets and animals: No leisure activities: reading sexually active: No diet: low salt well-balanced diet: daily or most days caffeine: No high-fat food intake: 0-1 times daily daily servings fruits/ve-4 daily servings of milk/calcium: 2-4 eating out: rarely or never reads food labels: seldom or never during the past year weight has: remained stable physical activity: walking frequency: 1-2 times per week duration: < 15 minutes/day ROS Obtained: Yes All systems reviewed & no additional complaints except as documented Physical Exam General General appearance: alert and in no apparent distress Head Head exam: atraumatic and normocephalic Eye Eye exam: Present normal appearance, PERRL and EOMI ENT ENT exam: Present mucous membranes moist Neck Neck exam: Present normal inspection, full ROM and trachea midline Respiratory Respiratory exam: Absent respiratory distress, wheezes, stridor, accessory muscle use or prolonged expiratory phase Cardiovascular Cardiovascular exam: Present normal rhythm Abdominal Exam Abdominal exam: Present soft; Absent distention, tenderness, guarding, rebound or rigidity Extremities Exam Extremities exam: Absent edema Neurological Exam Neurological exam: Present alert, oriented X3, CN II-XII intact and normal gait; Absent motor sensory deficit Skin Skin exam: Present warm and dry; Absent diaphoresis or erythema Medical Decision Making Medical Records Medical records reviewed: Yes I reviewed the patient's medical records. Prakash Inquiry Pt receiving controlled substance: No Prakash was queried for this patient: No Vital Signs: 06/30/23 10:35 Temperature 99.1 F Temperature Source Oral Pulse Rate [Radial] 72 Respiratory Rate 18 Blood Pressure [Right Arm] 142/67 H Blood Pressure Mean [Right Arm] 92 Blood Pressure Source [Right Arm] Automatic Cuff Blood Pressure Position [Right Arm] Sitting 02 Sat by Pulse Oximetry 97 Oxygen Delivery Method Room Air Orders (Tests/Meds): ED MEDICATIONS Discontinued Medications Generic Name Dose Route Start Last Admin Trade Name Freq PRN Reason Stop Dose Admin Dexamethasone 10 mg 06/30/23 10:47 Dexamethasone 4mg Tablet PO 06/30/23 10:48 ONCE ONE ORDERS Category Date Time Status CXR --portable [XR chest portable] Stat Exams 06/30/23 10:47 Taken Medical Decision Narrative: 82-year-old male history of A-fib on more current, hypertension, hyper lipidemia, CAD presenting with COVID. Patient states he started having symptoms 5 days prior to this visit. Tested positive for COVID yesterday. States he has been having cough productive of greenish sputum, fevers, body aches. Has been taking Tylenol and Motrin with mild relief. No chest pain, shortness of breath, nausea vomiting or diarrhea, or any other concerns. History was obtained via conversation with patient. On arrival, patient hemodynamically stable, alert, oriented x4, appropriate, GCS 15, moving all extremities spontaneously, pupils equal and reactive to light. Full physical exam performed and significant for well-appearing male no acute distress. Lungs clear to auscultation bilaterally anterior and posterior. Nontachycardic, nontachypneic and in no acute distress. Saturating appropriately on room air. Differential includes bronchitis, pneumonia, among others. Patient was given Decadron p.o. for symptomatic management and correction of underlying abnormalities. Workup independently interpreted and significant for no acute airspace disease on chest x-ray. See radiology read for full review of final results. given patient presentation, workup, history, this most likely represents COVID bronchitis versus pneumonia. Because patient at baseline without signs or symptoms of clinical decompensation, deemed appropriate for discharge. Results were relayed to patient who voiced understanding and were agreeable to outpat ient management and follow up. At the time of discharge the patient was hemodynamically stable, tolerating PO, and mobilizing appropriately. Given Paxlovid for home-going. Critical Care Critical Care Time Critical Care Time: No
--- NOTE | 2023-06-30 10:47 | XR_ITS ---
FINAL REPORT CLINICAL HISTORY: productive cough COMPARISON: 02/20/2022 FINDINGS: SINGLE-VIEW CHEST The heart size is normal. The mediastinum is normal. The lungs are clear. There is no pneumothorax. IMPRESSION: No acute cardiopulmonary process. Reviewed, Interpreted and Dictated by David Walton III, MD Transcribed by Fern Wolfe Authenticated and [facility]
[2023-06-30] MEDS: DEXAMETHASONE 4MG TABLET 10 MG PO (11:01)
[2023-06-30 11:05] VITALS: BP 154/68; PULSE 64; RESP 18; TEMP 37.2; O2SAT 96
== END 2023-06-30 11:05 | disposition home or self-care (01) ==
PROVIDERS: Emergency Provider Emergency Medicine; PCP Internal Medicine
DX: U07.1 COVID-19 (principal); R53.1 Weakness; R05.9 Cough, unspecified; I48.91 Unspecified atrial fibrillation; I10 Essential (primary) hypertension; E78.5 Hyperlipidemia, unspecified; I25.10 Atherosclerotic heart disease of native coronary artery without angina pectoris
CPT/HCPCS: 71045; 99283

== ENCOUNTER 2023-08-05 13:11 | Outpatient (CLI) | payer MEDICARE, SELFPAY ==
[2023-08-05 15:21] LABS: Alanine Aminotransferase 17 U/L (12-78); Albumin Level 4.6 g/dl (3.5-5.0); Albumin/Globulin Ratio 1.8 (1.1-1.8); Alkaline Phosphatase 63 U/L (38-126); Anion Gap 11.2 mEq/L (5-15); Aspartate Amino Transferase 30 U/L (17-59); Bilirubin,Total 0.8 mg/dl (0.2-1.3); Blood Urea Nitrogen 13 mg/dl (9-20); Calcium 9.7 mg/dl (8.4-10.2); Carbon Dioxide 31 mmol/L (22.0-30.0); Chloride 99 mmol/L (98-107); Chol/HDL Ratio 2.6 (1-3.5); Cholesterol 156 mg/dl (140-200); Creatine Kinase 71 U/L (55-170); Estimated Glomerular Filt Rate 108 ml/min (>60); GFR (African American) 131 ML/MIN (>60); Globulin 2.5 g/dL (1.3-3.2); Glucose 86 mg/dl (74-100); HDL Cholesterol 60 mg/dl (40-60); Potassium 4.2 mmoL/L (3.5-5.1); Sodium 137 mmol/L (136-145); Total Protein,Serum 7.1 g/dl (6.3-8.2); Triglycerides 73 mg/dl (30-150); VLDL Cholesterol 15 mg/dL (0-40)
[2023-08-05 15:32] LABS: Direct LDL Cholesterol 69.25 mg/dL (100-129)
== END 2023-08-05 23:59 ==
LOC: LAB.DROPOF 13:12
PROVIDERS: PCP Internal Medicine; Visit Provider Internal Medicine
DX: I10 Essential (primary) hypertension (principal); I48.20 Chronic atrial fibrillation, unspecified; E78.5 Hyperlipidemia, unspecified; E53.8 Deficiency of other specified B group vitamins; E79.0 Hyperuricemia without signs of inflammatory arthritis and tophaceous disease; G60.9 Hereditary and idiopathic neuropathy, unspecified; M15.0 Primary generalized (osteo)arthritis; N40.1 Benign prostatic hyperplasia with lower urinary tract symptoms
CPT/HCPCS: 80053; 80061; 82550

== ENCOUNTER 2023-10-27 13:32 | Outpatient (POV) | payer MEDICARE, SELFPAY | END 2023-10-27 23:59 | disposition home or self-care (01) | LOC: SC 13:33 | PROVIDERS: PCP Internal Medicine; Visit Provider Dermatology | DX: Z00.00 Encounter for general adult medical examination without abnormal findings (principal) ==

== ENCOUNTER 2024-02-08 09:15 | Outpatient (CLI) | payer MEDICARE, SELFPAY ==
[2024-02-08 16:09] LABS: Basophils % 1.2 % (0.1-2.0); Eosinophils # 0.1 K/mm3 (0.0-0.4); Eosinophils % 2.2 % (0.1-12.0); Hematocrit 41.9 % (42.0-52.0); Hemoglobin 13.2 g/dL (14.1-18.0); Lymphocytes # 0.8 K/mm3 (0.7-4.5); Lymphocytes % 20.8 % (10-50); Mean Corpuscular HGB Conc 31.4 g/dL (31.8-35.4); Mean Corpuscular Hemoglobin 30.4 pg (27.0-31.2); Mean Corpuscular Volume 96.7 fl (80-94); Monocytes # 0.3 K/mm3 (0.1-1.0); Monocytes % 8.7 % (1.7-9.3); Neutrophils # 2.5 K/mm3 (1.8-7.8); Neutrophils % 67.1 % (37.0-80.0); Platelet Count 297 K/mm3 (142-424); Red Blood Count 4.33 M/mm3 (4.60-6.20); Red Cell Distribution Width 13.8 % (11.5-17.5); Reticulocyte % (Auto) 1.1 % (0.9-3.2); White Blood Count 3.8 K/mm3 (4.8-10.8)
[2024-02-08 17:19] LABS: Chloride 98 mmol/L (98-107)
[2024-02-08 17:20] LABS: Albumin Level 4.3 g/dl (3.5-5.0); Potassium 4.1 mmoL/L (3.5-5.1); Sodium 136 mmol/L (136-145)
[2024-02-08 17:23] LABS: Alanine Aminotransferase 18 U/L (12-78); Albumin/Globulin Ratio 1.7 (1.1-1.8); Alkaline Phosphatase 51 U/L (38-126); Anion Gap 10.1 mEq/L (5-15); Aspartate Amino Transferase 26 U/L (17-59); Blood Urea Nitrogen 14 mg/dl (9-20); Calcium 9.3 mg/dl (8.4-10.2); Carbon Dioxide 32 mmol/L (22.0-30.0); Chol/HDL Ratio 3.5 (1-3.5); Cholesterol 196 mg/dl (140-200); Estimated Glomerular Filt Rate 92 ml/min (>60); GFR (African American) 112 ML/MIN (>60); Globulin 2.5 g/dL (1.3-3.2); Glucose 82 mg/dl (74-100); HDL Cholesterol 56 mg/dl (40-60); Total Protein,Serum 6.8 g/dl (6.3-8.2); Triglycerides 65 mg/dl (30-150); VLDL Cholesterol 13 mg/dL (0-40)
[2024-02-08 17:34] LABS: Direct LDL Cholesterol 97.92 mg/dL (100-129)
[2024-02-11 15:15] LABS: Alpha-1-Globulin 0.3 g/dL (0.0-0.4); Alpha-2-Globulin 0.7 g/dL (0.4-1.0); Gamma Globulin 0.9 g/dL (0.4-1.8); Protein, Total 6.7 g/dL (6.0-8.5)
[2024-04-04 15:51] LABS: PDF SCANNED IMAGE
== END 2024-02-08 23:59 | disposition home or self-care (01) ==
LOC: LAB.DROPOF 02-09 09:35
PROVIDERS: PCP Internal Medicine; Visit Provider Internal Medicine
DX: I10 Essential (primary) hypertension (principal); E78.5 Hyperlipidemia, unspecified; D47.2 Monoclonal gammopathy; D64.9 Anemia, unspecified; E53.8 Deficiency of other specified B group vitamins
CPT/HCPCS: 80053; 80061; 84155; 85025; 85044

== ENCOUNTER 2024-03-21 10:07 | Outpatient (CLI) | payer MEDICARE, SELFPAY | END 2024-03-21 23:59 | disposition home or self-care (01) | LOC: LAB 10:08 | PROVIDERS: PCP Internal Medicine; Visit Provider Specialist | DX: Z02.9 Encounter for administrative examinations, unspecified (principal) ==

== ENCOUNTER 2024-03-22 11:31 | Outpatient (CLI) | payer MEDICARE, SELFPAY ==
[2024-03-22 12:40] LABS: C-Reactive Protein 1.2 mg/L (0-4)
[2024-03-22 13:02] LABS: Erythrocyte Sedimentation Rate 17 mm/hr (0-20)
[2024-03-22 13:41] LABS: Vitamin B12 814 pg/mL (239-931)
[2024-03-25 13:18] LABS: Alpha-1-Globulin 0.3 g/dL (0.0-0.4); Alpha-2-Globulin 0.8 g/dL (0.4-1.0); Immunofixation Result, Serum Comment: (.); Immunoglobulin A, Qn, CHARGE YES; Immunoglobulin A, Qn, Serum 126 mg/dL (61-437); Immunoglobulin G, Qn, CHARGE YES; Immunoglobulin G, Qn, Serum 1056 mg/dL (603-1613); Immunoglobulin M, Qn, CHARGE YES; Immunoglobulin M, Qn, Serum 75 mg/dL (15-143)
[2024-04-19 16:22] LABS: Antinuclear Antibodies (ANA) NEGATIVE; PDF SCANNED IMAGE; Rapid Plasma Reagin Ab Titer NON REACTIVE
== END 2024-03-22 23:59 | disposition home or self-care (01) ==
LOC: LAB 11:32
PROVIDERS: PCP Specialist; Visit Provider Specialist
DX: R68.89 Other general symptoms and signs (principal); E53.8 Deficiency of other specified B group vitamins; I10 Essential (primary) hypertension; G93.40 Encephalopathy, unspecified; D47.2 Monoclonal gammopathy
CPT/HCPCS: 36415; 82607; 82746; 82784; 84155; 84165; 84443; 85651; 86038; 86140; 86225; 86235; 86334; 86593

== ENCOUNTER 2024-03-29 15:25 | Outpatient (CLI) | payer MEDICARE, SELFPAY ==
--- NOTE | 2024-03-29 15:25 | MR_ITS ---
PROCEDURE INFORMATION: Exam: MR Head Without Contrast Exam date and time: 03/29/2024 4:14 PM Age: 83 years old Clinical indication: Altered mental status/memory loss TECHNIQUE: Imaging protocol: Magnetic resonance imaging of the head without contrast. COMPARISON: No relevant recent comparison exams. FINDINGS: Brain: Confluent and focal areas of T2 prolongation within the periventricular and subcortical white matter of the supratentorial brain without restricted diffusion. No intra- or extra-axial mass or abnormality and no abnormal enhancement. No mass effect or midline shift. Cerebral ventricles: Ventriculomegaly with mildly dilated/prominent sulci and basal cisterns. Bones: Unremarkable. Paranasal sinuses: No significant mucoperiosteal thickening in the visualized paranasal sinuses. Mastoid air cells: No mastoid effusion. Orbital cavities: NA Soft tissues: Midline brain structures including the corpus callosum, pituitary gland, pineal region, and craniovertebral junction are unremarkable. Intracranial vessels demonstrate a normal flow-void. IMPRESSION: 1. 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 2. No acute hemorrhagic or ischemic infarct. 3. [id number] chronic microvascular ischemic disease and generalized age appropriate atrophy.
== END 2024-03-29 23:59 | disposition home or self-care (01) ==
LOC: RAD 15:25
PROVIDERS: PCP Internal Medicine; Visit Provider Specialist
DX: G93.40 Encephalopathy, unspecified (principal); E53.8 Deficiency of other specified B group vitamins; R68.89 Other general symptoms and signs; I10 Essential (primary) hypertension
CPT/HCPCS: 70551

== ENCOUNTER 2024-05-06 13:08 | Day surgery (SDC) | payer MEDICARE, SELFPAY ==
[2024-05-06 13:35] VITALS: BP 170/99; PULSE 79; RESP 16; TEMP 36.8; O2SAT 97; BMI 24.3
[2024-05-06] MEDS: LIDOCAINE 1% 30ML PF VIAL 30 ML (14:27)
[2024-05-06 14:28] VITALS: BP 163/71; PULSE 70; RESP 18; O2SAT 98
[2024-05-06 14:30] VITALS: BP 163/71; PULSE 79; RESP 18; O2SAT 98
[2024-05-06 14:55] VITALS: BP 193/85; PULSE 70; RESP 16; O2SAT 98
--- NOTE | 2024-05-06 15:08 | PC.NURSE ---
notified pt blood pressure elevated. pt asymptomatic. provider ok with pt to be dc'd and f/u prn. post procedure instructions given to pt and .
[2024-05-06 15:27] LABS: Glucose,CSF 55 mg/dl (40-70)
--- NOTE | 2024-05-06 16:30 | EXP.PAIN.PRO ---
Procedure Date: 05/06/24 Time: 16:30 Anesthesiologist:: David Silveira MD Complications:: None Pre-procedure Diagnosis:: Mental status changes with normal pressure hydrocephalus Post-procedure Diagnosis:: Same Indications for Procedure:: This patient is a pleasant 83-year-old white male who is referred by Dr. Lambert for lumbar puncture diagnostic for normal pressure hydrocephalus. We will obtain opening and closing pressures and CSF for indicated studies. Procedure Details:: Lumbar puncture Informed consent was obtained risk and benefits of the procedure were explained to the patient. The patient was taken to the procedure room. Was placed in the left lateral decubitus position. He was prepped and draped in sterile fashion. C-arm fluoroscopy was used to view the lumbar spine. The skin and subcutaneous tissues were anesthetized using lidocaine. A 20-gauge spinal needle was inserted and advanced into the L5-S1 interspace. CSF was obtained opening pressures were found to be 15 cm of water. We then obtained approximately 30 mL of clear CSF. These were placed into a total of 4 tubes. There was some wastage of CSF obtaining pressures. Closing pressures were found to be 4 cm of water. Patient tolerated the procedure well with no complications. Patient was advised on conservative treatment for postdural puncture headache. Patient was discharged home neurologic intact with good relief of pain Plan and Disposition:: We will follow this patient with you. Thank you for the consult.
[2024-05-06 17:42] LABS: Appearance,CSF Clear (Clear); Volume,CSF 20.5 mL
[2024-05-06 17:43] LABS: Red Blood Cell,CSF 0 cells/uL (0); White Blood Cell,CSF 0 cells/uL (0-5)
[2024-05-06 17:45] LABS: Appearance,CSF Clear (Clear); Volume,CSF 20.5 mL
[2024-05-06 17:46] LABS: Red Blood Cell,CSF 0 cells/uL (0); White Blood Cell,CSF 1 cells/uL (0-5)
[2024-05-06 19:28] LABS: Mononuclear WBCs,CSF 0 %; Polynuclear WBCs,CSF 0 %
== END 2024-05-06 14:56 | disposition home or self-care (01) ==
LOC: SC.PAINP 13:10
PROVIDERS: Specialist; PCP Internal Medicine; Visit Provider Anesthesiology
DX: G91.2 (Idiopathic) normal pressure hydrocephalus (principal)
CPT/HCPCS: 62328; 82945; 84155; 86592; 87070; 87102; 87116; 87205; 87206; 87899; 89051

== ENCOUNTER 2024-05-20 15:05 | Outpatient (CLI) | payer MEDICARE, SELFPAY ==
--- NOTE | 2024-05-20 15:13 | CA_ITS ---
APPROVED REPORT EXAM: Comprehensive 2D, Doppler, and color-flow Echocardiogram Poultry Farmer Egg: Bre Leon RT(R) Ht: 5 ft 10 in Wt: 174lbs BSA: 1.97 BP: 146/90 mmHg Indications: AFIB, HTN, hyperlipidemia. 2D Dimensions Left Atrium 4.85 cm M: 3.0 - 4.0 LVEF (Iyp's) 37.00 % M: 52 - 72 LVOT 2.06 cm (M/F) 1.5-2.5 LV Volume 110.60 mL M: 62 - 150 LV Volume Index 56.1 mL/m2 M: 34 - 74 LA Volume 68.00 mL LA Volume Index 34.52 mL/m2 (M/F) 16-34 EF AP4 35.40 % EF AP2 36.8 % EF BP 37.0 % GL Strain -13.5 % M-Mode Dimensions RVDd 3.65 cm (0.9-2.6) LVDd 5.21 cm (3.5-5.7) Ao Diam 2.74 cm (2.0-3.7) LVDs 3.80 cm (3.5-5.7) IVSd 0.76 cm (0.6-1.1) PWd 0.76 cm (0.6-1.1) EF (Teich) 52.30% FS 27.10% EDV (Teich) 130.10 mL ESV (Teich) 62.00 mL Aortic Valve LVOT Max 109.0 (70-110 cm/s) CAROLYN Index 0.90 cm2/m2 LVOT VTI 23.46 cm AoV Peak Lazaro. 190.0 (50-130 cm/s) AI PHT 621.00 ms AO Mean GR. 7.10 (<5 mmHg) AO VTI 44.1 (18-25 cm) CAROLNY (VTI) 1.77 (2.5-4.5 cm2) Tricuspid Valve TR P. Velocity 285.00 cm/s RAP Estimate 10.00 mmHg RVSP 42.60 mmHg Left Ventricle The left ventricle is normal size. Left ventricular systolic function is mildly decreased. There is increased LV wall thickness. There is mild to moderate global hypokinesis present. The septum is asynchronous. Diastolic function is indeterminate. LVEF is 40-45%. Right Ventricle The right ventricle is mildly dilated. The right ventricular systolic function is normal. Atria Left atrium is severely dilated. Right atrium is moderately dilated. There is no Doppler evidence of interatrial shunt. Aortic Valve The aortic valve is mildly thickened. Borderline mild aortic stenosis is present. CAROLYN by continuity equation is 2.0 cm???. Peak velocity is 2.0 m/s. Mean AV gradient is 8 mmHg. Max AV gradient is 15 mmHg. Mild aortic regurgitation. Mitral Valve The mitral valve leaflets are mildly thickened. No evidence of mitral valve stenosis. Mild mitral regurgitation. Tricuspid Valve The tricuspid valve leaflets are thin and pliable. Moderate tricuspid regurgitation. RVSP is 30-35 mmHg. Pulmonic Valve The pulmonary valve is normal in structure. Pulmonic regurgitation. Great Vessels The aortic root is normal in size. IVC is normal in size and collapses >50% with inspiration. Pericardium There is no pericardial effusion. Other Information Study Quality: Fair Conclusion Mild reduction in LV systolic function (LVEF 40-45%). Asynchronous septum Mild RV dilation with normal RV function. Biatrial dilation. Borderline mild (CAROLYN by continuity equation is 2.0 cm???. Peak velocity is 2.0 m/s. Mean AV gradient is 8 mmHg. Max AV gradient is 15 mmHg). Mild MR. Moderate TR. RVSP 30-35 mmHg. Electronically signed by : Ann Marie Bansal MD 06/06/2024 11:13:32
== END 2024-05-20 23:59 | disposition home or self-care (01) ==
LOC: RT 15:06
PROVIDERS: PCP Internal Medicine; Visit Provider Internal Medicine Cardiovascular Disease
DX: I48.21 Permanent atrial fibrillation (principal)
CPT/HCPCS: 93306

== ENCOUNTER → 2024-07-04 15:34 | Outpatient (CLI) | payer MEDICARE, SELFPAY | LOC: SL 15:37 | PROVIDERS: PCP Internal Medicine; Visit Provider Specialist | DX: G47.33 Obstructive sleep apnea (adult) (pediatric) (principal) | CPT/HCPCS: 94762 ==

== ENCOUNTER 2024-08-08 09:40 | Outpatient (CLI) | payer MEDICARE, SELFPAY ==
[2024-08-08 18:32] LABS: Alanine Aminotransferase 17 U/L (12-78); Albumin Level 4.7 g/dl (3.5-5.0); Alkaline Phosphatase 64 U/L (38-126); Anion Gap 12.1 mEq/L (5-15); Aspartate Amino Transferase 27 U/L (17-59); Bilirubin,Total 0.8 mg/dl (0.2-1.3); Blood Urea Nitrogen 14 mg/dl (9-20); Calcium 9.4 mg/dl (8.4-10.2); Carbon Dioxide 32 mmol/L (22.0-30.0); Chloride 97 mmol/L (98-107); Chol/HDL Ratio 3.6 (1-3.5); Cholesterol 176 mg/dl (140-200); Estimated Glomerular Filt Rate 92 ml/min (>60); GFR (African American) 112 ML/MIN (>60); Globulin 2.4 g/dL (1.3-3.2); Glucose 78 mg/dl (74-100); HDL Cholesterol 49 mg/dl (40-60); Potassium 4.1 mmoL/L (3.5-5.1); Sodium 137 mmol/L (136-145); Total Protein,Serum 7.1 g/dl (6.3-8.2); Triglycerides 84 mg/dl (30-150); VLDL Cholesterol 17 mg/dL (0-40)
[2024-08-08 18:44] LABS: Direct LDL Cholesterol 90.07 mg/dL (100-129)
[2024-08-08 19:04] LABS: Prostate Specific Ag Screen 4.2 ng/ml (0.0-4.0)
== END 2024-08-08 23:59 | disposition home or self-care (01) ==
LOC: LAB.DROPOF 08-09 14:49
PROVIDERS: PCP Internal Medicine; Visit Provider Internal Medicine
DX: Z12.5 Encounter for screening for malignant neoplasm of prostate (principal); I10 Essential (primary) hypertension; E78.5 Hyperlipidemia, unspecified; I48.20 Chronic atrial fibrillation, unspecified
CPT/HCPCS: 80053; 80061; G0103

== ENCOUNTER 2025-02-07 09:50 | Outpatient (CLI) | payer MEDICARE, SELFPAY ==
[2025-02-07 13:46] LABS: Hematocrit 40.3 % (42.0-52.0); Hemoglobin 13.3 g/dL (14.1-18.0); Immature Granulocytes % 0.5 %; Mean Corpuscular HGB Conc 33.0 g/dL (31.8-35.4); Mean Corpuscular Hemoglobin 30.0 pg (27.0-31.2); Mean Corpuscular Volume 91.0 fl (80-94); Nucleated Red Blood Cells % 0 %; Platelet Count 287 K/mm3 (142-424); Red Blood Count 4.43 M/mm3 (4.60-6.20); Red Cell Distribution Width-SD 43.9 fL; White Blood Count 4.0 K/mm3 (4.8-10.8)
[2025-02-07 14:19] LABS: Alanine Aminotransferase 17 U/L (12-78); Albumin Level 4.7 g/dl (3.5-5.0); Albumin/Globulin Ratio 1.7 (1.1-1.8); Alkaline Phosphatase 62 U/L (38-126); Anion Gap 12.4 mEq/L (5-15); Aspartate Amino Transferase 27 U/L (17-59); Bilirubin,Total 0.9 mg/dl (0.2-1.3); Blood Urea Nitrogen 17 mg/dl (9-20); Calcium 9.4 mg/dl (8.4-10.2); Carbon Dioxide 31 mmol/L (22.0-30.0); Chloride 99 mmol/L (98-107); Cholesterol 197 mg/dl (140-200); Creatinine,Serum 0.90 mg/dl (0.66-1.25); Estimated Glomerular Filt Rate 80 ml/min (>60); GFR (African American) 97 ML/MIN (>60); Globulin 2.7 g/dL (1.3-3.2); Glucose 93 mg/dl (74-100); HDL Cholesterol 64 mg/dl (40-60); Potassium 4.4 mmoL/L (3.5-5.1); Sodium 138 mmol/L (136-145); Total Protein,Serum 7.4 g/dl (6.3-8.2); Triglycerides 79 mg/dl (30-150)
--- OUTSIDE RECORDS SUMMARY | 2025-02-08 12:07 | XMS_ITS | Clinical Summary ---
Author Organization Healthcare Address [address] [id number] Care Team Providers Care Lead Bi Developer Name Role Phone Shaileshmercy Karyna Villalpando DDS Primary Care Provider [phone] Allergies No known active allergies Medications amLODIPine (Norvasc) 5 MG tablet Take 5 mg by mouth 1 (one) time each day. Active carvedilol (Coreg) 12.5 MG tablet 10/29/2020 Active fluticasone-salm eterol (Advair Diskus) 100-50 MCG/DOSE diskus inhaler Inhale 1 puff twice a day. Active hydroCHLOROthiaz corrine (Microzide) 12.5 MG capsule 03/27/2021 Act bacilio lisinopril 40 MG tablet Take 40 mg by mouth. Active Loratadine 10 MG capsule Take 10 mg by mouth 1 (one) time each day. Active Eliquis 5 MG tablet Take 1 tablet (5 mg) by mouth twice a day. 04/29/2023 Active linaCLOtide (LINZESS PO) Active Social History Tobacco Use Types Packs/Day Years Used Date Smoking Tobacco: Never Smokeless Tobacco: Never Alcohol Use Standard Drinks/Week Comments Not Currently 0 (1 standard drink = 0.6 oz pur e alcohol) Sex and Gender Information Value Date Recorded Sex Assigned at Not on file Legal Sex Male 6:55 PM EDT Gender Identity Not on file Sexual Orientation Not on file Last Filed Vital Signs Vital Sign Reading Time Taken Comments Blood Pressure 155/76 10/10/2024 1:04 PM EDT Pulse 69 10/10/2024 1:04 PM EDT Temperature 36.7 C (98.1 F) 10/10/2024 1:04 PM EDT Respiratory Rate - - Oxygen Saturation 98% 10/10/2024 1:04 PM EDT Inhaled Oxygen Concentration - - Weight 78.9 kg (173 lb 15.1 oz) 10/10/2024 1:04 PM EDT Height 180.3 cm (5' 11 ) 10/10/2024 1:04 PM EDT Body Mass Index 24.26 10/10/2024 1:04 PM EDT Plan of Treatment Upcoming Encounters Date Type Department Care Team (Late st Contact Info) Description 10/09/2025 1:00 PM EDT [facility] [address] [place] [address] Uzma Mullins, [address] [place] [address] Chacha Treadwell Health Maintenance Due Date Last Done Comments Dental Oral Exam 1940 Dental Prophylaxis 1940 Dental X-Ray: Bitewings 1940 Dental X-Ray: Full Mouth 1940 [facility]-Depression Screening 1940 [facility]-Medicare Annual Wellness (AWV) 1940 [facility]-Infant/Child/Adol SDOH Screenings 1940 [facility]- SDOH Screenings 1958 [facility]-Adult SDOH Screenings 1958 [facility]-DTaP,Tdap,and Td Vaccines (1 - Tdap) 09/23/1959 [facility]-Zoster Vaccines (1 of 2) 1990 [facility]-Pneumococcal Vaccine: 50+ Years (2 of 2 - PCV20 or PCV21) 06/29/2016 06/29/2015 OCD-AMOZE-05 Vaccine ( - 2023- season) 2025 03/17/2024, 02/26/2022, 02/27/2021, Additional history exists [facility]-Influenza Vaccine (#1) 2025 03/07/2024 [facility]-RSV Vaccine: 60+ Years or Completed 03/23/2023 HPV Vaccines Aged Out No longer eligi ble based on patient's age to complete this topic [facility]-HIB Vaccines Aged Out No longer e ligible based on patient's age to complete this topic [facility]-Hepatitis A Vaccines Aged Out No longer eligible based on patient's age to complete this topic [facility]-IPV Vaccines Aged Out No longer e ligible based on patient's age to complete this topic [facility]-Rotavirus Vaccines Aged Out No lo nger eligible based on patient's age to complete this topic Insurance MEDICARE [facility] Care Teams Lead Bi Developer Relationship Specialty Start Date End Date Karyna Mcgrath DDS [address] [place] [address] PCP - General Dentist 10/12/23
--- OUTSIDE RECORDS SUMMARY | 2025-02-08 12:07 | XMS_ITS | Clinical Summary ---
[facility] Address [address] [place] [id number] Care Team Providers Care Drone Pilot Name Role Phone Juan Francisco Varner MD Primary Care Provider [phone] Allergies No known active allergies Medications lisinopril (PRINIVIL,ZESTR IL) 40 MG tablet Take 1 tablet by mouth 2 (Two) Times a Day. Active finasteride (PROSCAR) 5 MG tablet Take 1 tablet by mouth Every Night. Active hydrochlorothia zide (HYDRODIURIL) 12.5 MG tablet Take 1 tablet by mouth Daily. Active amLODIPine (NORVASC) 5 MG tablet Take 1 tablet by mouth Daily. Active Loratadine 10 MG capsule Take 1 capsule by mouth Daily. Active Cyanocobalamin (VITAMIN B-12 IJ) Inject as directed Every 30 (Thirty) Days. Active Yukgoxkqa-X1-L9 (L-CARNITINE 500 PO) Take 500 mg by mouth 2 (Two) Times a Day. Active linaclotide (LINZESS) 290 MCG capsule capsule Take 145 mcg by mouth Every Morning Before Breakfast. Active Cholecalciferol (MAXIMUM D3 PO) Take 325 mcg by mouth 1 (One) Time Per Week. Active fluticasone (FLONASE) 50 MCG/ACT nasal spray Administer 2 sprays into the nostril(s) as directed by provider Every Night. Active Eliquis 5 MG tablet tablet Take 1 tablet by mouth 2 (Two) Times a Day. 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 Asymptomatic atrial fibrillation: a. Diagnosed, 02/17/2012; Coumadin initiated. b. EKG, 02/17/2012, showing atrial fibrillation at 93 beats per minute. c. Echocardiogram, January 2012; no data. d. External cardioversion to normal sinus rhythm, 03/22/2012, with subsequent recurrence in 48 to 72 hours. Hypertension 07/07/2016 Hyperlipidemia 07/07/2016 Hypertensive heart disease 07/07/2016 Anticoagulated on Coumadin 07/07/2016 Overview (07/07/2016): Continue Coumadin, follow by Dr. Varner with goal INR of 2 or 3 Family History Relation Name Status Comments Father Mother Social History Tobacco Use Types Packs/Day Years Used Date Smoking Tobacco: Never Smokeless Tobacco: Never Tobacco Cessation:Counseling Given: Not Answered Alcohol Use Standard Drinks/Week Comments No 0 (1 standard drink = 0.6 oz pur e alcohol) AUDIT-C Answer Date Recorded Q1: How often do you have a drink containing alcohol? Never 04/03/2023 Q2: How many drinks containi ng alcohol do you have on a typical day when you are drinking? Patient does not drink Q3: How often do you have si x or more drinks on one occasion? Never 04/03/2023 Abuse Screen Answer Date Recorded Feels Unsafe at Home or Work/School no 04/03/2023 Feels Threatened by Someone no 03/25 Does Anyone Try to Keep You From Having Contact with Others or Doing Things Outside Your Home? no 04/03/2023 Physical Signs of Abuse Present no 04/03/2023 Housing Stability Answer Date Recorded Current Living Arrangements home 03/25 Potentially Unsafe Housing Conditions Not on walker e 04/03/2023 Disabilities Answer Date Recorded Difficulty Concentrating, Remembering or Making Decisions yes 04/03/2023 Difficulty Managing Errands Independently no 04/03/2023 Sex and Gender Information Value Date Recorded Sex Assigned at Not on file Legal Sex Male 1:27 PM EDT Gender Identity Not on file Sexual Orientation Not on file Last Filed Vital Signs Vital Sign Reading Time Taken Comments Blood Pressure 144/62 05/11/2024 11:01 AM EST Pulse 60 05/11/2024 11:01 AM EST Temperature 36.4 C (97.5 F) 04/04/2023 11:08 AM EST Respiratory Rate 14 04/04/2023 11:08 AM EST Oxygen Saturation 98% 05/11/2024 11:01 AM EST Inhaled Oxygen Concentration - - Weight 78.9 kg (174 lb) 05/11/2024 11:01 AM EST Height 180.3 cm (5' 11 ) 05/11/2024 11:01 AM EST Body Mass Index 24.27 05/11/2024 11:01 AM EST Plan of Treatment Upcoming Encounters Date Type Department Care Team (Late st Contact Info) Description 05/31/2025 3:00 PM EST Office Visit [facility] [address] [place] [address] Angel Villafana MD [address] [place] [address] Health Maintenance Due Date Last Done Comments LIPID PANEL 1940 TDAP/TD VACCINES (1 - Tdap) 09/23/1959 ZOSTER VACCINE (1 of 2) 1990 RSV Vaccine - Adults (1 - 1- dose 75+ series) 09/23/2015 Pneumococcal Vaccine 50+ (2 of 2 - PPSV23) 06/29/2016 06/29/2015 ANNUAL WELLNESS VISIT 12/31/2016 COVID-19 Vaccine (2023-2 5 season) 2025 03/17/2024, 02/26/2022, 02/27/2021, Additional history exists INFLUENZA VACCINE 02/22/2025 03/07/2024 Insurance MEDICARE A & B [employer] Advance Directives * CPR (Attempt to Resuscitate) (Latest Code Status on File) Date Activated Date Inactivated Comments 04/03/2023 4:54 PM 04/04/2023 5:59 PM Question Answer Comments Code Status (Patient has no pulse and is not breathing): CPR (Attempt to Resuscitate) Medical Interventions (Patie nt has pulse or is breathing): Full Level Of Support Discussed With: Patient Care Teams Drone Pilot Relationship Specialty Start Date End Date Juan Francisco Varner MD [address] [facility] [address] [place] [id number] PCP - General 09/05/15
== END 2025-02-07 23:59 ==
LOC: LAB.DROPOF 02-08 12:05
PROVIDERS: PCP Internal Medicine; Visit Provider Internal Medicine
DX: E78.5 Hyperlipidemia, unspecified (principal); I10 Essential (primary) hypertension; I48.91 Unspecified atrial fibrillation
CPT/HCPCS: 80053; 80061; 85025

== ENCOUNTER 2025-04-05 13:56 | Outpatient (CLI) | payer MEDICARE, SELFPAY ==
--- OUTSIDE RECORDS SUMMARY | 2025-04-05 14:17 | XMS_ITS | Clinical Summary ---
[facility] Address [address] [place] [id number] Care Team Providers Care Environmental Studies Program Director Name Role Phone Juan Francisco Varner MD Primary Care Provider [phone] Allergies No known active allergies Medications lisinopril [...] as directed Every 30 (Thirty) Days. Active Lltfbsmkx-A4-E3 (L-CARNITINE 500 PO) Take 500 mg by [...] Description 05/31/2025 3:00 PM EST Office Visit [facility] [address] [facility] [address] [place] [address] Angel Villafana MD [address] [place] [address] Health Maintenance Due Date Last Done Comments LIPID PANEL 1940 TDAP/TD VACCINES (1 - Tdap) 09/23/1959 ZOSTER VACCINE (1 of 2) 1990 RSV Vaccine - Adults (1 - 1- dose 75+ series) 09/23/2015 Pneumococcal Vaccine 50+ (2 of 2 - PCV20 or PCV21) 06/29/2016 06/29/2015 ANNUAL WELLNESS VISIT 12/31/2016 INFLUENZA VACCINE 12/23/2024 03/07/2024 COVID-19 Vaccine (6 - Modern a risk 2023- season) 2025 03/17/2024, 02/26/2022, 02/27/2021, Additional history exists Insurance MEDICARE A & B [facility] C[facility] OPTIONS Advance Directives * CPR (Attempt to Resuscitate) (Latest Code Status on File) Date Activated Date Inactivated Comments 04/03/2023 4:54 PM 04/04/2023 5:59 PM Question Answer Comments Code Status (Patient has no pulse and is not breathing): CPR (Attempt to Resuscitate) Medical Interventions (Patie nt has pulse or is breathing): Full Level Of Support Discussed With: Patient Care Teams Environmental Studies Program Director Relationship Specialty Start Date End Date Juan Francisco Varner MD [address] [facility] [address] [facility] [id number] PCP - General 09/05/15
--- OUTSIDE RECORDS SUMMARY | 2025-04-05 14:17 | XMS_ITS | Clinical Summary ---
Author Organization Healthcare Address [address] [place] [id number] Care Team Providers Care Submarine Cable Equipment Technician Name Role Phone Shaileshmercy Karyna Villalpando DDS Primary Care Provider [phone] Allergies No known active allergies Medications amLODIPine [...] Description 10/09/2025 1:00 PM EDT [facility] [address] [place] [address] Uzma Mullins, [address] [place] [address] Chacha Treadwell Health Maintenance Due [...] 2 - PCV20 or PCV21) 06/29/2016 06/29/2015 [id number] Vaccine ( - 2023- season) 2025 03/17/2024, [...] age to complete this topic Insurance MEDICARE [facility] Care Teams Submarine Cable Equipment Technician Relationship Specialty Start Date End Date Karyna Mcgrath DDS [address] [place] [address] PCP - General Dentist 10/12/23
[2025-04-05 14:36] LABS: Hematocrit 40.0 % (42.0-52.0); Hemoglobin 13.3 g/dL (14.1-18.0); Immature Granulocytes % 0.4 %; Mean Corpuscular HGB Conc 33.3 g/dL (31.8-35.4); Mean Corpuscular Hemoglobin 30.2 pg (27.0-31.2); Mean Corpuscular Volume 90.7 fl (80-94); Nucleated Red Blood Cells % 0 %; Platelet Count 271 K/mm3 (142-424); Red Blood Count 4.41 M/mm3 (4.60-6.20); Red Cell Distribution Width-SD 42.3 fL; White Blood Count 5.3 K/mm3 (4.8-10.8)
[2025-04-05 15:45] LABS: Alanine Aminotransferase 18 U/L (12-78); Albumin Level 4.6 g/dl (3.5-5.0); Albumin/Globulin Ratio 1.7 (1.1-1.8); Alkaline Phosphatase 69 U/L (38-126); Anion Gap 11.0 mEq/L (5-15); Aspartate Amino Transferase 27 U/L (17-59); Bilirubin,Total 1.0 mg/dl (0.2-1.3); Blood Urea Nitrogen 14 mg/dl (9-20); Calcium 9.7 mg/dl (8.4-10.2); Carbon Dioxide 32 mmol/L (22.0-30.0); Chloride 97 mmol/L (98-107); Creatinine,Serum 0.90 mg/dl (0.66-1.25); Estimated Glomerular Filt Rate 80 ml/min (>60); GFR (African American) 97 ML/MIN (>60); Globulin 2.7 g/dL (1.3-3.2); Glucose 100 mg/dl (74-100); Potassium 4.0 mmoL/L (3.5-5.1); Sodium 136 mmol/L (136-145); Total Protein,Serum 7.3 g/dl (6.3-8.2)
[2025-04-06 16:38] LABS: Albumin 4.1 g/dL (2.9-4.4); Alpha-1-Globulin 0.2 g/dL (0.0-0.4); Alpha-2-Globulin 0.7 g/dL (0.4-1.0); Gamma Globulin 1.1 g/dL (0.4-1.8)
[2025-04-07 16:13] LABS: Immunoglobulin A, Qn 147 mg/dL (61-437); Immunoglobulin G, Qn 1169 mg/dL (603-1613); Immunoglobulin M, Qn 73 mg/dL (15-143)
== END 2025-04-05 23:59 | disposition home or self-care (01) ==
LOC: LAB 13:57
PROVIDERS: PCP Internal Medicine; Visit Provider Internal Medicine Medical Oncology
DX: D47.2 Monoclonal gammopathy (principal)
CPT/HCPCS: 36415; 80053; 82784; 83521; 84155; 84165; 85025; 86334